=== PATIENT | male | born 1960 | race Caucasian/White ===

== ENCOUNTER 2020-04-02 14:15 | Inpatient (IN) | payer OTHER ==
[~2020-04-02] VITALS: Ht 177.8 cm; Wt 98.9 kg
--- NOTE | 2020-04-02 14:52 | NUR ---
ED Nurse Note: pt presents to ED seeking Regeneron infusion. he was sent by his Dr, Dr. Naidu. pt is c/o SOB and cough, last medicated at 1100 with tylenol. pt is also c/o 5/10 DORANTES px. pt tested (+) 6 days ago
[2020-04-02 14:54] VITALS: BP 124/77
[2020-04-02] MEDS ORDERED: Regeneron EUA 2,400 MG in NS 255 ML IVPB SCH (15:00)
[2020-04-02] MEDS ORDERED: Regeneron EUA MISC ONE (15:00)
--- NOTE | 2020-04-02 15:12 | Emergency Room Report ---
History of Present Illness General Chief Complaint: Flu Like Symptoms Source: Patient Present Illness HPI Disclaimer: Please note that this report is being documented using DRAGON technology. This can lead to erroneous entry secondary to incorrect interpretation by the dictating instrument. HPI: 59-year-old male history of hypertension, hyperlipidemia, asthma presents for monoclonal antibody infusion. Tested positive for COVID-19 [facility] on 02/26 with symptoms beginning 2 days prior. Reports persistent dry cough and mild shortness of breath. Low-grade fevers. Denies chest pain, palpitations, nausea, vomiting or diarrhea. Placed on hydroxychloroquine, azithromycin and prednisone by his PMD, Dr. Naidu. Told to come to the ER for Regeneron infusion. No prior history of allergic reactions. 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 EOMI. Resp: Normal work of breathing, no wheezing, dry cough. Scattered crackles. Initial triage 92% however 96% on room on room air. Skin: Intact. No abrasions, laceration or rash over the exposed skin MSK: Normal tone and bulk. Moving all extremities. No obvious deformity. Neuro: Awake and alert. Mentating appropriately Procedures Critical Care Time Critical Care Time Total critical care time: Approximately 45 minutes Due to a high probability of clinically significant, life threatening deterioration, the patient required the highest level of preparedness to intervene emergently and I personally spent this critical care time directly and personally managing the patient. This critical care time included obtaining a history, examining the patient, pulse oximetry, ordering and reviewing studies, ordering treatments, evaluating response to treatment and updating management plan as needed, frequent reassessment and discussion with other providers as well as arranging for ultimate disposition. This critical to care time was performed to assess and manage the high probability of life-threatening deterioration that could result in multiorgan failure. This critical care time is separate from the separately billable procedures and treating other patients. Medical Decision Making Diagnostic Impression: Primary Impression: COVID-19 Additional Impression: Hypoxia ER Course 59-year-old male history of asthma, hypertension and obesity presents for a general infusion. Tested positive for COVID-19 by nasal swab on 03/28. Patient is on hydroxychloroquine, prednisone and azithromycin by his PMD. He read and understands the risk of Regeneron infusion and has consented to proceed. Patient underwent infusion however during infusion noted worsening shortness of breath. Pulse ox was low approximately 88% which improved with nasal cannula. X-ray was obtained showing bilateral infiltrates. Patient also developed fever. Unclear if this is secondary to Covid versus infusion. No evidence of angioedema or severe anaphylaxis at this time. He is finished a course of azithromycin yesterday and has persistent infiltrates. Likely pneumonia secondary to COVID-19. Will admit for further monitoring of hypoxia. Accepted by Dr. Coley who is the assigned hospitalist for his health plan Labs show normal white count and hemoglobin as well as platelets. CBC unremarkable. White count within normal limits. Chemistry largely unremarkable aside from elevated lactic acid at 2.5. Patient receiving 30 cc/kg IV fluid bolus. Received antibiotics. Troponin negative. Inflammatory markers elevated. Urinalysis shows RBCs but no signs of acute infection. Dimer slightly elevated 0.64 patient was given Lovenox. Patient was tachycardiac after being told he needed to stay in the hospital because of his oxygenation status. Noted significant anxiety was treated with Ativan with some improvement. He feels better now but still remains slightly tachycardic. We will continue to monitor. Sepsis reevaluation: I, Dr. Hang Weir, reevaluated the patient Capillary refill: Less than 2 seconds MAP: 70 Heart rate: 119 Respiratory rate: 25 Initial Lactate: 2.5 Repeat Lactate: Pending Pressors: Not indicated at this time No signs of fluid overload Laboratory Tests Test 04/02/20 19:32 White Blood Count 7.0 K/UL (4.8-10.8) Red Blood Count 5.42 M/UL (4.70-6.10) Hemoglobin 15.6 G/DL (14.2-18.0) Hematocrit 46.6 % (42.0-52.0) Mean Corpuscular Volume 86 FL (80-99) Mean Corpuscular Hemoglobin 28.8 PG (27.0-31.0) Mean Corpuscular Hemoglobin Concent 33.4 G/DL (32.0-36.0) Red Cell Distribution Width 14.0 % (11.6-14.8) Platelet Count 150 K/UL (150-450) Mean Platelet Volume 7.6 FL (6.5-10.1) Neutrophils (%) (Auto) 81.7 % (45.0-75.0) H Lymphocytes (%) (Auto) 14.4 % (20.0-45.0) L Monocytes (%) (Auto) 3.7 % (1.0-10.0) Eosinophils (%) (Auto) 0.0 % (0.0-3.0) Basophils (%) (Auto) 0.2 % (0.0-2.0) Prothrombin Time 11.2 SEC (9.30-11.50) Prothrombin Time INR 1.0 (0.9-1.1) Activated Partial Thromboplast Time 31 SEC (23-33) D-Dimer 0.64 mg/L FEU (0.00-0.49) H Urine Color Pale yellow Urine Appearance Clear Urine pH 6 (4.5-8.0) Urine Specific [place] 1.015 (1.005-1.035) Urine Protein 2+ (NEGATIVE) H Urine Glucose (UA) Negative (NEGATIVE) Urine Ketones Negative (NEGATIVE) Urine Blood 2+ (NEGATIVE) H Urine Nitrite Negative (NEGATIVE) Urine Bilirubin Negative (NEGATIVE) Urine Urobilinogen Normal MG/DL (0.0-1.0) Urine Leukocyte Esterase Negative (NEGATIVE) Urine RBC 10-15 /HPF (0 - 0) H Urine WBC 0-2 /HPF (0 - 0) Urine Squamous Epithelial Cells Occasional /LPF Urine Bacteria Few /HPF (NONE) Sodium Level 136 MMOL/L (136-145) Potassium Level 3.8 MMOL/L (3.5-5.1) Chloride Level 99 MMOL/L (98-107) Carbon Dioxide Level 30 MMOL/L (21-32) Anion Gap 7 mmol/L (5-15) Blood Urea Nitrogen 14 mg/dL (7-18) Creatinine 1.2 MG/DL (0.55-1.30) Estimated Glomerular Filtration Rate > 60 mL/min (>60) Glucose Level 139 MG/DL (74-106) H Lactic Acid Level 2.50 mmol/L (0.4-2.0) H Calcium Level 9.1 MG/DL (8.5-10.1) Ferritin 239 NG/ML (8-388) Total Bilirubin 0.5 MG/DL (0.2-1.0) Aspartate Amino Transferase (AST) 24 U/L (15-37) Alanine Aminotransferase (ALT) 24 U/L (12-78) Alkaline Phosphatase 67 U/L (46-116) Lactate Dehydrogenase 252 U/L (81-234) H Total Creatine Kinase 94 U/L (26-308) Creatine Kinase MB < 0.5 NG/ML (0.0-3.6) Creatine Kinase MB Relative Index 0.5 Troponin I 0.000 ng/mL (0.000-0.056) C-Reactive Protein, Quantitative 10.9 mg/dL (0.00-0.90) H Pro-B-Type Natriuretic Peptide 105 pg/mL (0-125) Total Protein 8.1 G/DL (6.4-8.2) Albumin 3.6 G/DL (3.4-5.0) Globulin 4.5 g/dL Albumin/Globulin Ratio 0.8 (1.0-2.7) L Lipase 161 U/L (73-393) EKG Diagnostic Results Troponin ordered: Yes When was troponin ordered?: Apr 02, 2020 EKG Time: 20:44 Rate: tachycardiac Rhythm: NSR ST Segments: no acute changes Other Impression Sinus tachycardia with normal axis, normal intervals and nonspecific ST segment changes. Rhythm Strip Diag. Results Rhythm Strip Time: 20:44 EP Interpretation: yes Rate: 130s Rhythm: NSR, no PVC's, no ectopy Chest X-Ray Diagnostic Results Chest X-Ray Diagnostic Results : Chest X-Ray Ordered: Yes # of Views/Limited/Complete: 1 View Indication: Shortness of Breath EP Interpretation: Yes Interpretation: no effusion, no pneumothorax, other - Bilateral infiltrates Impression: Other - Bilateral pneumonia Electronically Signed by: Electronically signed by Dr. Hang Weir MD Last Vital Signs Date Time Temp Pulse Resp B/P (MAP) Pulse Ox O2 Delivery O2 Flow Rate FiO2 04/02/20 14:54 108 18 Room Air 04/02/20 14:54 99.1 124/77 92 Disposition: ADMITTED INPATIENT Condition: Serious Referrals: [facility],REFERRING (PCP) Hang Weir MD Apr 02, 2020 15:12
--- NOTE | 2020-04-02 16:20 | NUR ---
ED Nurse Note: infusion started
--- NOTE | 2020-04-02 16:40 | NUR ---
ED Nurse Note: pt tolerating infusion well, no adverse reaction noted
--- NOTE | 2020-04-02 17:20 | NUR ---
ED Nurse Note: infusion finished, no adverse reaction noted
--- NOTE | 2020-04-02 17:40 | NUR ---
ED Nurse Note: pt O2 saturation noted to be in low 90's, placed on 2L NC, saturation improved to 96%. CXR ordered
--- NOTE | 2020-04-02 18:24 | NUR ---
Coco rios in EDM - 04/02/20 at 1825 by QLE ED Nurse Note: pt c/o "severe" DORANTES, MIKE notified
--- NOTE | 2020-04-02 18:25 | NUR ---
ED Nurse Note: pt has fever of 101.2, ERMD notified
[2020-04-02] MEDS ORDERED: Acetaminophen 500mg (ES) tab ORAL ONE (18:30)
--- NOTE | 2020-04-02 18:35 | NUR ---
ED Nurse Note: pt's O2 saturation 92%-93% on 2L NC, increased to 4L, pt's saturation improved to 94%. he is speaking full sentences, tachy, and tearful but consolable.
--- NOTE | 2020-04-02 18:47 | Diagnostic Imaging Report ---
EXAM: XR Chest, 1 View CLINICAL HISTORY: PAIN TECHNIQUE: Frontal view of the chest. COMPARISON: No previous study. FINDINGS: Lungs: Prominent left hilum. Patchy airspace disease at the right lung base. Patchy airspace disease in the left mid lower lung zones. Pleural space: Unremarkable. No pneumothorax. Heart: Cardiomegaly. Mediastinum: Unremarkable. Bones/joints: Osteopenia. IMPRESSION: 1. Patchy airspace disease at the lung bases as well as the left midlung zone worrisome for atypical pneumonia as per 2. Prominent left hilum possibly on the basis of reactive lymphadenopathy appeared 3. CT imaging will provide additional information per 4. Mild cardiomegaly. 5. Osteopenia.
[2020-04-02] MEDS ORDERED: dexAMETHasone 10mg/ml Inj IV ONE (19:15)
[2020-04-02] MEDS ORDERED: Piperacillin/Tazobactam 3.375 GM in NS 110 ML IVPB ONE (19:30)
[2020-04-02 19:45] VITALS: BP 124/77
--- NOTE | 2020-04-02 19:55 | NUR ---
HAND-OFF: Report given to MUKESH Carpenter.
[2020-04-02 19:58] LABS: BASOPHILS % (AUTO) 0.2 % (0.0-2.0); HEMATOCRIT 46.6 % (42.0-52.0); HEMOGLOBIN 15.6 G/DL (14.2-18.0); LYMPHOCYTES % (AUTO) 14.4 % (20.0-45.0); MEAN CORPUSCULAR VOLUME 86 FL (80-99); MONOCYTES % (AUTO) 3.7 % (1.0-10.0); NEUTROPHILS % (AUTO) 81.7 % (45.0-75.0); PLATELET COUNT 150 K/UL (150-450); RED BLOOD COUNT 5.42 M/UL (4.70-6.10)
[2020-04-02] MEDS ORDERED: LORazepam Inj 2mg/ml 1ml IV ONE (20:00)
[2020-04-02 20:31] LABS: ANION GAP 7 mmol/L (5-15); BLOOD UREA NITROGEN 14 mg/dL (7-18); CALCIUM 9.1 MG/DL (8.5-10.1); CARBON DIOXIDE 30 MMOL/L (21-32); CHLORIDE 99 MMOL/L (98-107); CREATININE 1.2 MG/DL (0.55-1.30); POTASSIUM 3.8 MMOL/L (3.5-5.1); SODIUM 136 MMOL/L (136-145)
[2020-04-02] MEDS ORDERED: Enoxaparin 60mg Inj SUBQ ONE (20:45)
[2020-04-02] MEDS ORDERED: Enoxaparin 40mg Inj SUBQ ONE (20:45)
[2020-04-02 20:46] LABS: ALANINE AMINOTRANSFERASE 24 U/L (12-78); ALBUMIN 3.6 G/DL (3.4-5.0); ALBUMIN/GLOBULIN RATIO 0.8 (1.0-2.7); ALKALINE PHOSPHATASE 67 U/L (46-116); ASPARTATE AMINO TRANSFERASE 24 U/L (15-37); BILIRUBIN,TOTAL 0.5 MG/DL (0.2-1.0); CKMB < 0.5 NG/ML (0.0-3.6); CREATINE KINASE 94 U/L (26-308); FERRITIN 239 NG/ML (8-388); LACTATE DEHYDROGENASE 252 U/L (81-234)
--- NOTE | 2020-04-02 20:50 | NUR ---
ED Nurse Note: Received pt awake,A&ox4, and verbal. Pt is on 4L nc and satting 97-98%. he is on cardiac tech; HR 127 O2 97 RR 29 T 98.8. EkG done. All needs are met. We will keep monitoring the pt.
[2020-04-02 20:59] LABS: APPEARANCE,URINE CLEAR; BILIRUBIN, URINE NEGATIVE (NEGATIVE); COLOR,URINE PALE YELLOW; GLUCOSE, URINE (UA) NEGATIVE (NEGATIVE); KETONES,URINE NEGATIVE (NEGATIVE); LEUKOCYTE ESTERASE ,URINE NEGATIVE (NEGATIVE); NITRITE,URINE NEGATIVE (NEGATIVE); PH,URINE 6 (4.5-8.0); PROTEIN,URINE 2+ (NEGATIVE); UROBILINOGEN,URINE NORMAL MG/DL (0.0-1.0)
[2020-04-02] MEDS ORDERED: Zinc Sulfate 220mg ORAL ONE (21:15)
[2020-04-02] MEDS ORDERED: Vitamin D 400 units TAB ORAL ONE (21:15)
[2020-04-02 21:25] VITALS: BP 136/83
[2020-04-02] MEDS ORDERED: Milk of Magnesia 30ml Ud ORAL PRN (21:30)
--- NOTE | 2020-04-02 23:56 | NUR ---
ED Nurse Note: pt is on the bed sleeping, calm , and vitals are stable. we will keep monitoring the pt
[2020-04-02 23:57] VITALS: BP 128/78
[2020-04-03] MEDS ORDERED: LORazepam 0.5mg tab ORAL ONE (00:30)
[2020-04-03] MEDS ORDERED: DiphenhydrAMINE 50mg/ml Inj IVP ONE (02:00)
[2020-04-03 02:01] VITALS: BP 124/71
--- NOTE | 2020-04-03 02:38 | NUR ---
ED Nurse Note: pt is complaning of not sleeping EDMD ordered benadryl. order noted and carried on. we will keep monitoring the pt.
[2020-04-03 05:30] VITALS: BP 134/76
[2020-04-03 08:01] VITALS: BP 111/79
--- NOTE | 2020-04-03 08:13 | NUR ---
ED Nurse Note: report given to Elsa, RN
--- NOTE | 2020-04-03 08:14 | NUR ---
ED Nurse Note: per pt. he takes bp and cjolestrol med but does not remember the names of the med
--- NOTE | 2020-04-03 08:23 | NUR ---
ED Nurse Note: Pt was transferred to telemetry unit under the care of dr. fuller. Report was given to MUKESH Hunter in Tele unit. Pt was transferred on stable condition, all belongings sent with pt, covid 19 protocols for transport was observed.
--- NOTE | 2020-04-03 08:33 | NUR ---
NURSE NOTES: Admitted patient from ED, report given by Audra MAYORGA. Transferred to bed and hooked to O2 at 4LPM. shelter monitor placed. Vital signs taken and recorded. Skin check done, intact. Belongings accounted for. Oriented to room and call light. HOB elevated. Bed locked in low position. Call light within reach, instructed to call for assistance. Bedside commode and urinal provided. HOB elevated. Bed locked in low position. Call light within reach. Will continue plan of care.
[2020-04-03] MEDS: dexAMETHasone 10mg/ml Inj IV SCH (08:48)
[2020-04-03] MEDS: Azithromycin 250mg tab ORAL SCH (08:48)
[2020-04-03] MEDS: cefTRIAXone 1gm/D5W 55ml IVPB SCH ×2 (08:48)
[2020-04-03] MEDS: Ascorbic Acid 500mg tab ORAL SCH (08:48)
[2020-04-03] MEDS ORDERED: Enoxaparin 40mg Inj SUBQ SCH ×2 (09:00)
[2020-04-03 12:00] VITALS: BP 121/77
--- NOTE | 2020-04-03 14:30 | History and Physical Report ---
DATE OF ADMISSION: 04/02/2020 CHIEF COMPLAINT: COVID-19 pneumonia. HISTORY OF PRESENT ILLNESS: The patient is a 59-year-old male. He has history of hypertensive heart disease. Apparently, he did develop symptoms of COVID on . He was tested on the and was positive for COVID-19. The patient was instructed by his PMD to go to the ER for Regeneron treatment, which he did receive but during the treatment he became hypoxic and short of breath. In light of the hypoxemia, he is now admitted for further evaluation and care. PAST MEDICAL HISTORY: As above. PAST SURGICAL HISTORY: None. CURRENT MEDICATIONS: Reconciled and reviewed. ALLERGIES: None. FAMILY HISTORY: None. SOCIAL HISTORY: Negative for tobacco, ethanol, or drugs. REVIEW OF SYSTEMS: Negative except for fevers, cough, and shortness of breath. PHYSICAL EXAMINATION: VITAL SIGNS: Temperature 98, pulse 99, respirations 24, O2 saturation 99% on 4 liters nasal cannula. GENERAL: The patient is well-developed, no apparent distress. HEART: Regular rate and rhythm. LUNGS: Clear. ABDOMEN: Soft, nontender, nondistended. EXTREMITIES: Without clubbing, cyanosis, or edema. LABORATORY AND DIAGNOSTIC DATA: Chest x-ray showed patchy bilateral infiltrates. White count was 7. Sodium 136, potassium 3.8. Lactic acid was 2.5. C-reactive protein was 10. ASSESSMENT: This is a 59-year-old male with a history of hypertension admitted with COVID-19 pneumonia and hypoxemia. PLAN: IV steroids. ID consultation. Consider Remdesivir. Empiric antibiotic therapy to cover for community-acquired pneumonia. DVT and stress ulcer prophylaxis. Hua Coley M.D. DR: Joseph JOB#: [id number] CC:
--- NOTE | 2020-04-03 15:52 | NUR ---
NURSE NOTES: Covid PCR test done and sent to lab. Patient could not tolerate deep swab, label folder aware.
[2020-04-03 16:00] VITALS: BP 128/55
[2020-04-03] MEDS: Albuterol 90mcg Inhaler 8gm INH PRN (17:52)
--- NOTE | 2020-04-03 19:05 | NUR ---
NURSE NOTES: Received report from MUKESH Hunter. Pt is A/O x 4 and verbally responsive. No pain noted at this time. Pt is on 5L via NC with saturation of 94%. Pt has IV site on RAC and LAC both 20G which are flushed and patent. Bed in lowest position and locked with side rails x 2. Pt is continent of bowel and bladder and educated is help is needed. Pt's call light placed within reach. Will continue plan of care.
--- NOTE | 2020-04-03 19:44 | NUR ---
NURSE HAND-OFF REPORT: Important Events on Shift: admission Patient Status: alert Diet: reg Pending Orders: Pending Results/Labs: Pending MD notification: Latest Vital Signs: Temperature 97.9 , Pulse 93 , B/P 128 /55 , Respiratory Rate 18 , O2 SAT 94 , Nasal Cannula, O2 Flow Rate 5.0 . Vital Sign Comment: EKG Rhythm: Sinus Rhythm Rhythm change?: N MD Notified?: - MD Response: Latest Reina Fall Score: 35 Fall Risk: Medium Risk Safety Measures: Call light Within Reach, Bed Alarm Zone 1, Side Rails Side Rails x2, Bed position Low and Locked. Fall Precautions: Yellow Socks Report given to Allyson MAYORGA.
[2020-04-03 20:00] VITALS: BP 122/54
[2020-04-03] MEDS ORDERED: Loading Dose:Remdesivir 200mg/NS 210ml IV SCH ×2 (21:00)
[2020-04-03] MEDS: LORazepam 1mg tab ORAL PRN (21:29)
[2020-04-04] VITALS: BP 134/85
[2020-04-04 04:00] VITALS: BP 122/59
[2020-04-04 06:38] LABS: BASOPHILS % (AUTO) 0.1 % (0.0-2.0); HEMATOCRIT 40.5 % (42.0-52.0); HEMOGLOBIN 13.7 G/DL (14.2-18.0); LYMPHOCYTES % (AUTO) 19.2 % (20.0-45.0); MEAN CORPUSCULAR VOLUME 86 FL (80-99); MONOCYTES % (AUTO) 3.3 % (1.0-10.0); NEUTROPHILS % (AUTO) 77.3 % (45.0-75.0); PLATELET COUNT 133 K/UL (150-450); RED CELL DISTRIBUTION WIDTH 13.1 % (11.6-14.8); WHITE BLOOD COUNT 6.7 K/UL (4.8-10.8)
[2020-04-04 07:14] LABS: ALANINE AMINOTRANSFERASE 23 U/L (12-78); ALBUMIN 2.7 G/DL (3.4-5.0); ALBUMIN/GLOBULIN RATIO 0.7 (1.0-2.7); ALKALINE PHOSPHATASE 48 U/L (46-116); ANION GAP 8 mmol/L (5-15); ASPARTATE AMINO TRANSFERASE 28 U/L (15-37); BILIRUBIN,DIRECT 0.1 MG/DL (0.0-0.3); BILIRUBIN,TOTAL 0.6 MG/DL (0.2-1.0); BLOOD UREA NITROGEN 15 mg/dL (7-18); CALCIUM 8.5 MG/DL (8.5-10.1); CARBON DIOXIDE 27 MMOL/L (21-32); CHLORIDE 105 MMOL/L (98-107); CREATININE 0.8 MG/DL (0.55-1.30); POTASSIUM 3.5 MMOL/L (3.5-5.1); SODIUM 140 MMOL/L (136-145)
--- NOTE | 2020-04-04 07:25 | NUR ---
NURSE NOTES: Received patient in bed. Awake, A/O x4. On 5 L NC. Patient denies pain. IV in the Right AC, site intact. Bed low and locked, side rails up x2, call light within reach with return demonstration.
--- NOTE | 2020-04-04 07:34 | NUR ---
NURSE HAND-OFF REPORT: Important Events on Shift: Started Remdisivir. Started with a productive cough. Patient Status: Stable Diet: Regular Pending Orders: Pending Results/Labs: Pending MD notification: Latest Vital Signs: Temperature 97.7 , Pulse 75 , B/P 122 /59 , Respiratory Rate 18 , O2 SAT 94 , Nasal Cannula, O2 Flow Rate 5.0 . Vital Sign Comment: EKG Rhythm: Sinus Rhythm Rhythm change?: N MD Notified?: - MD Response: Latest Reina Fall Score: 35 Fall Risk: Medium Risk Safety Measures: Call light Within Reach, Bed Alarm Zone 1, Side Rails Side Rails x2, Bed position Low and Locked. Fall Precautions: Yellow Socks Report given to
[2020-04-04 08:00] VITALS: BP 130/63
[2020-04-04] MEDS ORDERED: Enoxaparin 60mg Inj SUBQ SCH (09:00)
[2020-04-04] MEDS: dexAMETHasone 10mg/ml Inj IV SCH (09:13)
[2020-04-04] MEDS: cefTRIAXone 1gm/D5W 55ml IVPB SCH ×2 (09:13)
[2020-04-04] MEDS: Azithromycin 250mg tab ORAL SCH (09:13)
[2020-04-04] MEDS: Ascorbic Acid 500mg tab ORAL SCH (09:13)
[2020-04-04] MEDS ORDERED: LISINOPRIL20 MG ORAL (11:08)
[2020-04-04] MEDS ORDERED: NORVASC5 MG ORAL (11:08)
[2020-04-04] MEDS ORDERED: LIPITOR20 MG ORAL (11:10)
[2020-04-04] MEDS: LORazepam 1mg tab ORAL PRN (11:37)
[2020-04-04 12:00] VITALS: BP 137/93
--- NOTE | 2020-04-04 13:36 | NUR ---
CASE MANAGEMENT:REVIEW 59 YR OLD MALE PRESENTED TO ER CC; SOB AND COUGH SI: COVID PNEUMONIA 101.0 108 18 124/77 92% ON RA GLUCOSE+139 LACTIC ACID+2.5 IS: PLACED ON 2L/NC IV REGENERON TYLENOL PO IV DECADRON IV ZOSYN BLOOD CX CHEST XRAY : TO TELEMETRY DCP: FROM HOME
--- NOTE | 2020-04-04 13:55 | General Progress Note ---
Subjective ROS Limited/Unobtainable: No Constitutional: Reports: malaise, weakness HEENT: Reports: no symptoms Cardiovascular: Reports: no symptoms Respiratory: Reports: shortness of breath Gastrointestinal/Abdominal: Reports: no symptoms Genitourinary: Reports: no symptoms Neurologic/Psychiatric: Reports: no symptoms Endocrine: Reports: no symptoms Hematologic/Lymphatic: Reports: no symptoms Allergies: Coded Allergies: No Known Allergies (Unverified , 04/02/20) All Systems: reviewed and negative except above Subjective no change. stable on 5L NC. Objective Last 24 Hour Vital Signs Date Time Temp Pulse Resp B/P (MAP) Pulse Ox O2 Delivery O2 Flow Rate FiO2 04/04/20 11:37 89 18 130/63 93 04/04/20 09:00 Nasal Cannula 5.0 04/04/20 08:00 89 04/04/20 08:00 97.5 88 18 130/63 (85) 93 04/04/20 04:00 97.7 80 18 122/59 (80) 94 04/04/20 04:00 75 04/04/20 00:00 88 04/04/20 00:00 97.9 85 18 134/85 (101) 95 04/03/20 20:05 Nasal Cannula 5.0 04/03/20 20:00 98.2 98 20 122/54 (76) 93 04/03/20 20:00 98 04/03/20 16:00 93 04/03/20 16:00 97.9 95 18 128/55 (79) 94 Intake and Output 0 04/03/20 04/04/20 19:00 07:00 Intake Total 360 ml 560 ml Output Total 350 ml Balance 360 ml 210 ml Intake Oral 360 ml 560 ml Output Urine Total 350 ml # Voids 1 1 # Bowel Movements 1 Laboratory Tests 04/04/20 05:00: White Blood Count 6.7, Red Blood Count 4.70, Hemoglobin 13.7L, Hematocrit 40.5L, Mean Corpuscular Volume 86, Mean Corpuscular Hemoglobin 29.2, Mean Corpuscular Hemoglobin Concent 33.9, Red Cell Distribution Width 13.1, Platelet Count 133L, Mean Platelet Volume 9.2, Neutrophils (%) (Auto) 77.3H, Lymphocytes (%) (Auto) 19.2L, Monocytes (%) (Auto) 3.3, Eosinophils (%) (Auto) 0.0, Basophils (%) (Auto) 0.1, Sodium Level 140, Potassium Level 3.5, Chloride Level 105, Carbon Dioxide Level 27, Anion Gap 8, Blood Urea Nitrogen 15, Creatinine 0.8, Estimat Glomerular Filtration Rate > 60, Glucose Level 99, Calcium Level 8.5, Total Bilirubin 0.6, Direct Bilirubin 0.1, Aspartate Amino Transf (AST/SGOT) 28, Alanine Aminotransferase (ALT/SGPT) 23, Alkaline Phosphatase 48, Total Protein 6.6, Albumin 2.7L, Globulin 3.9, Albumin/Globulin Ratio 0.7L Height (Feet): 5 Height (Inches): 10.00 Weight (Pounds): 218 General Appearance: WD/WN Neck: supple Cardiovascular: regular rhythm Respiratory/Chest: lungs clear Abdomen: normal bowel sounds, non tender, soft, no organomegaly Edema: no edema noted Leg (L), no edema noted Leg (R) 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
[2020-04-04] MEDS ORDERED: Tubing IV Secondary IV ONE (14:43)
[2020-04-04 16:00] VITALS: BP 132/90
--- NOTE | 2020-04-04 16:32 | Consultation ---
DATE OF CONSULTATION: 04/04/2020 INFECTIOUS DISEASE CONSULTATION REFERRING PHYSICIAN: Hua Coley M.D. REASON FOR CONSULT: COVID-19 pneumonia. HISTORY OF PRESENTING ILLNESS: This is a 59-year-old gentleman with history of hypertension, hypercholesterolemia, who comes in with cough along with shortness of breath. He was found to have COVID-19 pneumonia. He received Regeneron antibodies in the emergency room, but then he became increasingly short of breath and hypoxic and has been admitted. An infectious disease consultation has been obtained for antibiotics. PAST MEDICAL HISTORY: 1. History of hypertension. 2. Hypercholesterolemia. SOCIAL HISTORY: He does not smoke. He drinks alcohol. No history of drug use. FAMILY HISTORY: His mother has colon cancer. REVIEW OF SYSTEMS: RESPIRATORY: No fever or chills. He has cough. He has shortness of breath. No chest pain. CARDIAC: No chest pain. No palpitation. No dizziness. No syncope. GASTROINTESTINAL: No nausea. No vomiting. No abdominal pain or diarrhea. MEDICATIONS: As an inpatient, he is on lisinopril, enoxaparin, atorvastatin, amlodipine, remdesivir, lorazepam, ceftriaxone, ascorbic acid, famotidine, azithromycin, dexamethasone, Mylanta, milk of magnesia, albuterol, Tylenol, Zofran. ALLERGIES: No known drug allergies. PHYSICAL EXAMINATION: VITAL SIGNS: Temperature 97.5, T-max of 99.6, pulse of 85, respiratory rate of 18, blood pressure 132/74, O2 saturation of 92% on 5 L oxygen. Examination deferred due to COVID-19. LABORATORY DATA: White count 6.7, hemoglobin 13.7, hematocrit 40.5, MCV 86, platelet count of 133 with neutrophils of 77%. Sodium 140, potassium 3.5, chloride 105, bicarb 27, BUN 15, creatinine 0.8, glucose 99, calcium 8.5. Total bilirubin 0.5, ferritin 239, AST 28, ALT 23, alkaline phosphatase 48, LDH 252. CK of 94, CK-MB less than 0.5, troponin 0. Total protein 6.6, albumin 2.7, lipase of 161. UA showing 0 to 2 white cells. Blood cultures are negative. Chest x-ray showing patchy airspace disease at the lung bases as well as the left mid lung zone, prominent left hilum, mild cardiomegaly. ASSESSMENT: This is a 59-year-old gentleman with history of hypertension and hypercholesterolemia, who comes in with cough and shortness of breath and was found to have: 1. COVID-19 pneumonia. He is on 5 L oxygen with O2 saturation of 92%. He has received Regeneron antibody. 2. Hypertension. 3. Hypercholesterolemia. PLAN: 1. Continue remdesivir day 2. 2. Continue dexamethasone day 3. 3. Discontinue ceftriaxone and azithromycin. 4. Continue isolation. I would like to thank Dr. Coley for this consultation. Aly Carreno M.D. DR: IVANA JOB#: [id number] CC: Hua Coley M.D.
--- NOTE | 2020-04-04 19:19 | NUR ---
NURSE HAND-OFF REPORT: Important Events on Shift:[new PIV] Patient Status: [FULL CODE/stable] Diet: [regular] Pending Orders: [] Pending Results/Labs:[] Pending MD notification:[] Latest Vital Signs: Temperature 97.8 , Pulse 99 , B/P 132 /90 , Respiratory Rate 18 , O2 SAT 90 , Nasal Cannula, O2 Flow Rate 5.0 . Vital Sign Comment: [] EKG Rhythm: Sinus Rhythm Rhythm change?: N MD Notified?: - MD Response: Latest Reina Fall Score: 35 Fall Risk: Medium Risk Safety Measures: Call light Within Reach, Bed Alarm Zone 1, Side Rails Side Rails x2, Bed position Low and Locked. Fall Precautions: Yellow Socks Report given to [Fawad RN].
--- NOTE | 2020-04-04 19:20 | NUR ---
NURSE NOTES: Received report from MUKESH Marin. Pt is A/O x 4 and verbally responsive. No pain noted at this time. Pt is on 5L via NC with saturation of 94%. Pt has IV site on RFA 22G which is flushed and patent. Bed in lowest position and locked with side rails x 2. Pt is continent of bowel and bladder with bedside commode. Pt's call light placed within reach. Will continue plan of care.
[2020-04-04 20:00] VITALS: BP 115/82
--- NOTE | 2020-04-04 20:35 | NUR ---
NURSE NOTES: Pt stated he felt anxious and may want to take his Ativan because he hasnt gotten sleep all day. Notified him that he just needed to let me know so I could give. Will continue to monitor.
[2020-04-04] MEDS: Maintenance Dose:Remdesivir 100mg/NS 230ml x 4 Doses IV SCH ×2 (20:39)
--- NOTE | 2020-04-04 21:32 | NUR ---
NURSE NOTES: Pt called and notified that he would like his Ativan so he can sleep. VS stable. Given and will continue to monitor and will reassess in 30 minutes.
[2020-04-05] VITALS: BP 121/80
[2020-04-05 04:00] VITALS: BP 128/84
--- NOTE | 2020-04-05 05:19 | NUR ---
NURSE NOTES: Pt's called to have bed side commode changed. Noted to see him still sitting on bed side commode and asked if I could change all linens along with his gown. Pt agreed and waited till everything was changed. Pt stated that felt a lil tenderness at IV site flushed and pt stated pain went away. Will continue to monitor.
--- NOTE | 2020-04-05 07:19 | NUR ---
NURSE HAND-OFF REPORT: Important Events on Shift: Ativan given to his anxiety. Patient Status: Stable Diet: Cardiac Pending Orders: Pending Results/Labs: Pending MD notification: Latest Vital Signs: Temperature 98.1 , Pulse 76 , B/P 128 /84 , Respiratory Rate 18 , O2 SAT 91 , Nasal Cannula, O2 Flow Rate 5.0 . Vital Sign Comment: EKG Rhythm: Sinus Rhythm Rhythm change?: N MD Notified?: - MD Response: Latest Reina Fall Score: 35 Fall Risk: Medium Risk Safety Measures: Call light Within Reach, Bed Alarm Zone 1, Side Rails Side Rails x2, Bed position Low and Locked. Fall Precautions: Yellow Socks Report given to
--- NOTE | 2020-04-05 07:28 | NUR ---
NURSE NOTES: Received patient in bed. Awake, A/O x4. On 5 L NC. Denies pain. IV in the Right FA, site intact. Bed low and locked, side rails up x2, call light within reach - with return demonstration.
[2020-04-05 08:00] VITALS: BP 121/79
[2020-04-05 08:02] LABS: BASOPHILS % (AUTO) 0.5 % (0.0-2.0); HEMATOCRIT 40.3 % (42.0-52.0); HEMOGLOBIN 13.8 G/DL (14.2-18.0); LYMPHOCYTES % (AUTO) 20.1 % (20.0-45.0); MEAN CORPUSCULAR VOLUME 85 FL (80-99); MONOCYTES % (AUTO) 6.8 % (1.0-10.0); NEUTROPHILS % (AUTO) 72.6 % (45.0-75.0); PLATELET COUNT 130 K/UL (150-450); RED BLOOD COUNT 4.72 M/UL (4.70-6.10); RED CELL DISTRIBUTION WIDTH 13.3 % (11.6-14.8); WHITE BLOOD COUNT 5.8 K/UL (4.8-10.8)
[2020-04-05 08:15] LABS: ALANINE AMINOTRANSFERASE 26 U/L (12-78); ALBUMIN 2.5 G/DL (3.4-5.0); ALBUMIN/GLOBULIN RATIO 0.7 (1.0-2.7); ALKALINE PHOSPHATASE 45 U/L (46-116); ANION GAP 8 mmol/L (5-15); ASPARTATE AMINO TRANSFERASE 29 U/L (15-37); BILIRUBIN,DIRECT 0.2 MG/DL (0.0-0.3); BILIRUBIN,TOTAL 0.5 MG/DL (0.2-1.0); BLOOD UREA NITROGEN 19 mg/dL (7-18); CALCIUM 8.8 MG/DL (8.5-10.1); CARBON DIOXIDE 25 MMOL/L (21-32); CHLORIDE 105 MMOL/L (98-107); CREATININE 0.8 MG/DL (0.55-1.30); POTASSIUM 3.9 MMOL/L (3.5-5.1); SODIUM 137 MMOL/L (136-145)
[2020-04-05] MEDS: Lisinopril 20mg tab ORAL SCH (09:01)
[2020-04-05] MEDS: Ascorbic Acid 500mg tab ORAL SCH (09:01)
[2020-04-05] MEDS: dexAMETHasone 10mg/ml Inj IV SCH (09:02)
[2020-04-05] MEDS: Albuterol 90mcg Inhaler 8gm INH PRN ×2 (09:13→13:56)
[2020-04-05] MEDS: Enoxaparin 40mg Inj SUBQ SCH (09:13)
[2020-04-05] MEDS: LORazepam 1mg tab ORAL PRN ×3 (09:17→22:56)
[2020-04-05 12:00] VITALS: BP 134/71
--- NOTE | 2020-04-05 12:25 | NUR ---
CASE MANAGEMENT:REVIEW 04/05/20 SI: COVID PNEUMONIA 97.7 100 21 121/79 92% ON 5L/NC BUN+19 IS: IV REMDESIVIR Q24 IV DECADRON QD LISINOPRIL PO QD LOVENOX SQ QD NORVASC PO QHS : TELEMETRY STATUS DCP: FROM HOME PLAN: RECEIVED REGENERON (CASIRIVIMAB) IN ER CONTINUE REMDESIVIR CONTINUE DECADRON
--- NOTE | 2020-04-05 15:34 | General Progress Note ---
Subjective ROS Limited/Unobtainable: No Constitutional: Reports: malaise, weakness HEENT: Reports: no symptoms Cardiovascular: Reports: no symptoms Respiratory: Reports: cough, shortness of breath Gastrointestinal/Abdominal: Reports: no symptoms Genitourinary: Reports: no symptoms Neurologic/Psychiatric: Reports: no symptoms Endocrine: Reports: no symptoms Hematologic/Lymphatic: Reports: no symptoms Allergies: Coded Allergies: No Known Allergies (Unverified , 04/02/20) All Systems: reviewed and negative except above Subjective no change. stable on 5L NC. Objective Last 24 Hour Vital Signs Date Time Temp Pulse Resp B/P (MAP) Pulse Ox O2 Delivery O2 Flow Rate FiO2 04/05/20 14:26 74 18 128/74 93 04/05/20 13:56 85 18 131/77 95 04/05/20 12:00 97.6 89 19 134/71 (92) 94 04/05/20 09:47 70 18 132/88 92 04/05/20 09:17 78 18 121/79 91 04/05/20 09:01 121/79 04/05/20 09:00 Nasal Cannula 5.0 04/05/20 08:00 97.7 100 21 121/79 (93) 92 04/05/20 08:00 89 04/05/20 04:00 98.1 76 18 128/84 (99) 91 04/05/20 04:00 78 04/05/20 00:00 98.1 80 20 121/80 (94) 90 04/05/20 00:00 78 04/04/20 21:00 Nasal Cannula 5.0 04/04/20 20:40 96 137/89 04/04/20 20:00 95 04/04/20 20:00 97.9 90 20 115/82 (93) 91 04/04/20 16:00 97.8 83 18 132/90 (104) 90 04/04/20 16:00 99 Intake and Output 04/04/20 04/05/20 19:00 07:00 Intake Total 400 ml 820 ml Output Total 500 ml 450 ml Balance -100 ml 370 ml Intake Oral 400 ml 820 ml Output Urine Total 500 ml 450 ml # Voids 2 1 # Bowel Movements 1 Laboratory Tests 04/05/20 04:04: White Blood Count 5.8, Red Blood Count 4.72, Hemoglobin 13.8L, Hematocrit 40.3L, Mean Corpuscular Volume 85, Mean Corpuscular Hemoglobin 29.3, Mean Corpuscular Hemoglobin Concent 34.3, Red Cell Distribution Width 13.3, Platelet Count 130L, Mean Platelet Volume 8.6, Neutrophils (%) (Auto) 72.6, Lymphocytes (%) (Auto) 20.1, Monocytes (%) (Auto) 6.8, Eosinophils (%) (Auto) 0.0, Basophils (%) (Auto) 0.5, Sodium Level 137, Potassium Level 3.9, Chloride Level 105, Carbon Dioxide Level 25, Anion Gap 8, Blood Urea Nitrogen 19H, Creatinine 0.8, Estimat Glomerular Filtration Rate > 60, Glucose Level 101, Calcium Level 8.8, Total Bilirubin 0.5, Direct Bilirubin 0.2, Aspartate Amino Transf (AST/SGOT) 29, Alanine Aminotransferase (ALT/SGPT) 26, Alkaline Phosphatase 45L, Total Protein 6.2L, Albumin 2.5L, Globulin 3.7, Albumin/Globulin Ratio 0.7L Height (Feet): 5 Height (Inches): 10.00 Weight (Pounds): 218 Objective General Appearance: WD/WN Neck: supple Cardiovascular: regular rhythm Respiratory/Chest: lungs clear Abdomen: normal bowel sounds, non tender, soft, no organomegaly Edema: no edema noted Leg (L), no edema noted Leg (R) Neurologic: vice president business development II-XII grossly normal, alert, responsive Assessment/Plan Problem List: (1) Hypoxia ICD Codes: R09.02 - Hypoxemia SNOMED: 657395880 (2) COVID-19 ICD Codes: U07.1 - COVID-19 SNOMED: 364226010 Status: stable Assessment/Plan: stable cont current rx remdesivir steroids o2 repeat cxr dvt/stress ulcer prophylaxis Hua Coley MD Apr 05, 2020 15:34
[2020-04-05 16:00] VITALS: BP 138/75
--- NOTE | 2020-04-05 19:05 | Diagnostic Imaging Report ---
Indication: Cough Technique: One view of the chest Comparison: 04/02/2020 Findings: The heart is enlarged. Bilateral infiltrates have increased. The pleural spaces are clear. Impression: Worsening bilateral infiltrates, over 3 days
--- NOTE | 2020-04-05 19:17 | NUR ---
NURSE HAND-OFF REPORT: Important Events on Shift:[] Patient Status: [FULL CODE/ stable] Diet: [regular] Pending Orders: [titrate O2 ] Pending Results/Labs:[] Pending MD notification:[] Latest Vital Signs: Temperature 97.7 , Pulse 91 , B/P 138 /75 , Respiratory Rate 19 , O2 SAT 95 , Nasal Cannula, O2 Flow Rate 5.0 . Vital Sign Comment: [] EKG Rhythm: Sinus Tachycardia Rhythm change?: N MD Notified?: - MD Response: Latest Reina Fall Score: 35 Fall Risk: Medium Risk Safety Measures: Call light Within Reach, Bed Alarm Zone 1, Side Rails Side Rails x2, Bed position Low and Locked. Fall Precautions: Yellow Socks Report given to [Madeline MAYORGA].
--- NOTE | 2020-04-05 19:30 | NUR ---
NURSE NOTES: Received pt and report from MUKESH Marin. Observed pt resting in bed with both eyes open and watching telelvision. Pt is A/Ox4.trade manager is in placed; pt is NSR. IV site intact, asymptomatic, and patent. Bed is in the lowest position and locked. Call light and bedside table is within reach. No signs/symptoms of acute distress noted. Will continue plan care.
[2020-04-05 20:00] VITALS: BP 116/77
[2020-04-05] MEDS: Maintenance Dose:Remdesivir 100mg/NS 230ml x 4 Doses IV SCH ×2 (21:09)
[2020-04-06] VITALS: BP 112/56
--- NOTE | 2020-04-06 01:46 | NUR ---
NURSE NOTES: Observed pt asleep in bed. Pt is on 3L NC; sating at 92%. No signs/symptoms of acute distress noted. Will continue plan of care.
[2020-04-06 04:00] VITALS: BP 105/63
--- NOTE | 2020-04-06 07:16 | NUR ---
NURSE NOTES: Pt received from Nupur RN. Pt in bed resting, breakfast at bedside. bed low and locked, call light within reach. pt on nasal canula, no respiratory distress noted.
--- NOTE | 2020-04-06 07:25 | NUR ---
NURSE HAND-OFF REPORT: Important Events on Shift: No significant changes during nightshift. Pt is on O2 3LPM NC; sating at 90-92%. Pt gets anxious at times. Patient Status: Stable Diet: Regular Pending Orders: N Pending Results/Labs: AM Labs Pending MD notification: N Latest Vital Signs: Temperature 98.2 , Pulse 80 , B/P 105 /63 , Respiratory Rate 21 , O2 SAT 92 , Nasal Cannula, O2 Flow Rate 3.0 . EKG Rhythm: Sinus Rhythm Rhythm change?: N Latest Reina Fall Score: 35 Fall Risk: Medium Risk Safety Measures: Call light Within Reach, Bed Alarm Zone 1, Side Rails Side Rails x2, Bed position Low and Locked. Fall Precautions: Yellow Socks Patient Fall Education Report given to MUKESH Ngo.
[2020-04-06 07:56] LABS: BASOPHILS % (AUTO) 0.4 % (0.0-2.0); HEMATOCRIT 40.8 % (42.0-52.0); HEMOGLOBIN 13.7 G/DL (14.2-18.0); LYMPHOCYTES % (AUTO) 19.3 % (20.0-45.0); MEAN CORPUSCULAR VOLUME 85 FL (80-99); MONOCYTES % (AUTO) 6.8 % (1.0-10.0); NEUTROPHILS % (AUTO) 73.5 % (45.0-75.0); PLATELET COUNT 154 K/UL (150-450); RED BLOOD COUNT 4.78 M/UL (4.70-6.10); RED CELL DISTRIBUTION WIDTH 13.1 % (11.6-14.8); WHITE BLOOD COUNT 6.8 K/UL (4.8-10.8)
[2020-04-06 08:00] VITALS: BP 114/78
[2020-04-06] MEDS: Lisinopril 20mg tab ORAL SCH (08:08)
[2020-04-06] MEDS: Ascorbic Acid 500mg tab ORAL SCH (08:09)
[2020-04-06] MEDS: dexAMETHasone 10mg/ml Inj IV SCH (08:10)
[2020-04-06] MEDS: Enoxaparin 40mg Inj SUBQ SCH (08:12)
--- NOTE | 2020-04-06 10:26 | General Progress Note ---
Subjective ROS Limited/Unobtainable: No Constitutional: Reports: malaise, weakness HEENT: Reports: no symptoms Cardiovascular: Reports: no symptoms Respiratory: Reports: shortness of breath Gastrointestinal/Abdominal: Reports: no symptoms Genitourinary: Reports: no symptoms Neurologic/Psychiatric: Reports: no symptoms Endocrine: Reports: no symptoms Hematologic/Lymphatic: Reports: no symptoms Allergies: Coded Allergies: No Known Allergies (Unverified , 04/02/20) All Systems: reviewed and negative except above Subjective no events. stable on the vent. on 5-6 L o2. cxr yesterday worse. s/p regeneron. on remdesivir and steroids Objective Last 24 Hour Vital Signs Date Time Temp Pulse Resp B/P (MAP) Pulse Ox O2 Delivery O2 Flow Rate FiO2 04/06/20 09:00 Nasal Cannula 6.0 04/06/20 08:39 98.5 04/06/20 08:08 114/78 04/06/20 08:00 90 04/06/20 08:00 98.5 98 21 114/78 (90) 92 04/06/20 04:00 80 04/06/20 04:00 98.2 88 21 105/63 (77) 92 04/06/20 00:00 98.3 86 20 112/56 (74) 92 04/06/20 00:00 86 04/05/20 23:26 86 20 110/56 95 04/05/20 22:56 96 21 114/73 94 04/05/20 21:16 83 116/77 04/05/20 21:00 Nasal Cannula 3.0 04/05/20 20:00 95 04/05/20 20:00 98.1 95 20 116/77 (90) 95 04/05/20 16:00 101 04/05/20 16:00 97.7 91 19 138/75 (96) 95 04/05/20 14:26 74 18 128/74 93 04/05/20 13:56 85 18 131/77 95 04/05/20 12:00 95 04/05/20 12:00 97.6 89 19 134/71 (92) 94 Intake and Output 04/05/20 04/06/20 19:00 07:00 Intake Total 1000 ml 650 ml Output Total 1200 ml 850 ml Balance -200 ml -200 ml Intake Oral 1000 ml 650 ml Output Urine Total 1200 ml 850 ml # Voids 2 3 # Bowel Movements 1 1 Laboratory Tests 04/06/20 06:35: White Blood Count 6.8, Red Blood Count 4.78, Hemoglobin 13.7L, Hematocrit 40.8L, Mean Corpuscular Volume 85, Mean Corpuscular Hemoglobin 28.7, Mean Corpuscular Hemoglobin Concent 33.6, Red Cell Distribution Width 13.1, Platelet Count 154, Mean Platelet Volume 7.6, Neutrophils (%) (Auto) 73.5, Lymphocytes (%) (Auto) 19.3L, Monocytes (%) (Auto) 6.8, Eosinophils (%) (Auto) 0.0, Basophils (%) (Auto) 0.4 Height (Feet): 5 Height (Inches): 10.00 Weight (Pounds): 218 Objective General Appearance: WD/WN Neck: supple Cardiovascular: regular rhythm Respiratory/Chest: lungs clear Abdomen: normal bowel sounds, non tender, soft, no organomegaly Edema: no edema noted Leg (L), no edema noted Leg (R) Neurologic: section hand II-XII grossly normal, alert, responsive Assessment/Plan Problem List: (1) Hypoxia ICD Codes: R09.02 - Hypoxemia SNOMED: 577991340 (2) COVID-19 ICD Codes: U07.1 - COVID-19 SNOMED: 067080677 Status: stable Assessment/Plan: stable cont current rx remdesivir steroids o2 repeat cxr dvt/stress ulcer prophylaxis Hua Coley MD Apr 06, 2020 10:26
[2020-04-06] MEDS: LORazepam 1mg tab ORAL PRN (10:31)
[2020-04-06 11:11] LABS: ALANINE AMINOTRANSFERASE 35 U/L (12-78); ALBUMIN 2.9 G/DL (3.4-5.0); ALBUMIN/GLOBULIN RATIO 0.7 (1.0-2.7); ALKALINE PHOSPHATASE 58 U/L (46-116); ANION GAP 9 mmol/L (5-15); ASPARTATE AMINO TRANSFERASE 26 U/L (15-37); BILIRUBIN,DIRECT 0.2 MG/DL (0.0-0.3); BILIRUBIN,TOTAL 0.6 MG/DL (0.2-1.0); BLOOD UREA NITROGEN 17 mg/dL (7-18); CALCIUM 8.8 MG/DL (8.5-10.1); CARBON DIOXIDE 25 MMOL/L (21-32); CHLORIDE 103 MMOL/L (98-107); CREATININE 0.9 MG/DL (0.55-1.30); POTASSIUM 3.6 MMOL/L (3.5-5.1); SODIUM 136 MMOL/L (136-145)
[2020-04-06 12:00] VITALS: BP 124/83
--- NOTE | 2020-04-06 13:24 | NUR ---
CASE MANAGEMENT:REVIEW 04/06/20 SI: COVID PNEUMONIA 97.5 94 20 124/83 94% ON 6L/NC H/H-13.7/40.8 GLUCOSE+136 IS: IV REMDESIVIR Q24 (07/04) IV DECADRON QD LISINOPRIL PO QD LOVENOX SQ QD NORVASC PO QHS : TELEMETRY STATUS DCP: FROM HOME PLAN: RECEIVED REGENERON (CASIRIVIMAB) IN ER CONTINUE REMDESIVIR CONTINUE DECADRON WEAN OXYGEN WHEN ABLE
[2020-04-06 16:00] VITALS: BP 125/85
--- NOTE | 2020-04-06 16:35 | Infectious Diseases Prog Note ---
Assessment/Plan Assessment/Plan antibiotics : remdesivir A 1. covid 19 pneumonia on 3 liters O2 with 95 % saturation s/p regeneron antibody 2. hypertension 3. hypercholesterolemia P 1. Continue remdesivir day 4 2. Continue dexamethasone day 5. 3. Continue isolation. Subjective Constitutional: Denies: fever, chills Respiratory: Reports: shortness of breath - decreased, dry cough - decreased Gastrointestinal/Abdominal: Denies: nausea, vomiting, diarrhea Musculoskeletal: Denies: pain Allergies: Coded Allergies: No Known Allergies (Unverified , 04/02/20) Objective Last 24 Hour Vital Signs Date Time Temp Pulse Resp B/P (MAP) Pulse Ox O2 Delivery O2 Flow Rate FiO2 04/06/20 12:00 94 04/06/20 12:00 97.5 98 20 124/83 (97) 94 04/06/20 11:01 93 19 119/81 95 04/06/20 10:31 94 19 109/74 92 04/06/20 09:00 Nasal Cannula 6.0 04/06/20 08:39 98.5 04/06/20 08:08 114/78 04/06/20 08:00 90 04/06/20 08:00 98.5 98 21 114/78 (90) 92 04/06/20 04:00 80 04/06/20 04:00 98.2 88 21 105/63 (77) 92 04/06/20 00:00 98.3 86 20 112/56 (74) 92 04/06/20 00:00 86 04/05/20 23:26 86 20 110/56 95 04/05/20 22:56 96 21 114/73 94 04/05/20 21:16 83 116/77 04/05/20 21:00 Nasal Cannula 3.0 04/05/20 20:00 95 04/05/20 20:00 98.1 95 20 116/77 (90) 95 Height (Feet): 5 Height (Inches): 10.00 Weight (Pounds): 218 Laboratory Tests Test 04/06/20 06:35 04/06/20 10:20 White Blood Count 6.8 K/UL (4.8-10.8) Red Blood Count 4.78 M/UL (4.70-6.10) Hemoglobin 13.7 G/DL (14.2-18.0) L Hematocrit 40.8 % (42.0-52.0) L Mean Corpuscular Volume 85 FL (80-99) Mean Corpuscular Hemoglobin 28.7 PG (27.0-31.0) Mean Corpuscular Hemoglobin Concent 33.6 G/DL (32.0-36.0) Red Cell Distribution Width 13.1 % (11.6-14.8) Platelet Count 154 K/UL (150-450) Mean Platelet Volume 7.6 FL (6.5-10.1) Neutrophils (%) (Auto) 73.5 % (45.0-75.0) Lymphocytes (%) (Auto) 19.3 % (20.0-45.0) L Monocytes (%) (Auto) 6.8 % (1.0-10.0) Eosinophils (%) (Auto) 0.0 % (0.0-3.0) Basophils (%) (Auto) 0.4 % (0.0-2.0) Sodium Level 136 MMOL/L (136-145) Potassium Level 3.6 MMOL/L (3.5-5.1) Chloride Level 103 MMOL/L (98-107) Carbon Dioxide Level 25 MMOL/L (21-32) Anion Gap 9 mmol/L (5-15) Blood Urea Nitrogen 17 mg/dL (7-18) Creatinine 0.9 MG/DL (0.55-1.30) Estimat Glomerular Filtration Rate > 60 mL/min (>60) Glucose Level 136 MG/DL (74-106) H Calcium Level 8.8 MG/DL (8.5-10.1) Total Bilirubin 0.6 MG/DL (0.2-1.0) Direct Bilirubin 0.2 MG/DL (0.0-0.3) Aspartate Amino Transf (AST/SGOT) 26 U/L (15-37) Alanine Aminotransferase (ALT/SGPT) 35 U/L (12-78) Alkaline Phosphatase 58 U/L (46-116) Total Protein 6.8 G/DL (6.4-8.2) Albumin 2.9 G/DL (3.4-5.0) L Globulin 3.9 g/dL Albumin/Globulin Ratio 0.7 (1.0-2.7) L Current Medications Medications (Trade) Dose Ordered Sig/Hossein Route PRN Reason Start Time Stop Time Status Last Admin Dose Admin Acetaminophen (Tylenol) 650 mg Q4H PRN ORAL Mild Pain (Pain Scale 1-3) 04/02/20 21:15 05/02/20 21:14 04/06/20 08:09 Al Hydroxide/Mg Hydroxide (Mylanta) 30 ml Q6H PRN ORAL Abdominal cramps 04/02/20 21:30 05/02/20 21:29 04/05/20 22:55 Albuterol Sulfate (Proventil MDI) 2 puff Q4H PRN INH Shortness of Breath 04/02/20 21:30 07/01/20 21:29 04/05/20 13:56 Amlodipine Besylate (Norvasc) 5 mg QHS ORAL 04/04/20 21:00 05/04/20 20:59 04/05/20 21:16 Ascorbic Acid (Vitamin C) 500 mg DAILY ORAL 04/03/20 09:00 05/03/20 08:59 04/06/20 08:09 Atorvastatin Calcium (Lipitor) 20 mg BEDTIME ORAL 04/04/20 21:00 07/03/20 20:59 04/05/20 21:09 Dexamethasone Sodium Phosphate (Decadron 10mg/ ml Inj) 6 mg DAILY IV 04/03/20 09:00 04/12/20 09:01 04/06/20 08:10 Enoxaparin Sodium (Lovenox) 40 mg DAILY SUBQ 04/05/20 09:00 07/04/20 08:59 04/06/20 08:12 Famotidine (Pepcid) 20 mg DAILY ORAL 04/03/20 09:00 07/02/20 08:59 04/06/20 08:09 Lisinopril (PriniviL) 20 mg DAILY ORAL 04/05/20 09:00 05/05/20 08:59 04/06/20 08:08 Lorazepam (Ativan) 1 mg TIDPRN PRN ORAL For Anxiety 04/03/20 18:15 04/10/20 18:14 04/06/20 10:31 Magnesium Hydroxide (Mom) 30 ml HSPRN PRN ORAL Constipation 04/02/20 21:30 05/02/20 21:29 Ondansetron HCl (Zofran) 4 mg Q6H PRN IVP Nausea & Vomiting 04/02/20 21:15 05/02/20 21:14 Remdesivir 100 mg/ Sodium Chloride 250 ml @ 250 mls/hr Q24H IV 04/04/20 21:00 04/07/20 21:59 04/05/20 21:09 Aly Carreno MD Apr 06, 2020 16:35
--- NOTE | 2020-04-06 19:28 | NUR ---
NURSE HAND-OFF REPORT: Important Events on Shift:[no remarkable events, however o2 put up to 6 liters as pt sat at 88% on 3. Anxiety continues, however reduced by ativan] Patient Status: [full code] Diet: [regular] Pending Orders: [] Pending Results/Labs:[] Pending MD notification:[] Latest Vital Signs: Temperature 97.2 , Pulse 98 , B/P 125 /85 , Respiratory Rate 20 , O2 SAT 94 , Nasal Cannula, O2 Flow Rate 6.0 . Vital Sign Comment: [] EKG Rhythm: Sinus Rhythm Rhythm change?: N MD Notified?: - MD Response: Latest Reina Fall Score: 35 Fall Risk: Medium Risk Safety Measures: Call light Within Reach, Bed Alarm Zone 1, Side Rails Side Rails x2, Bed position Low and Locked. Fall Precautions: Yellow Socks Patient Fall Education Report given to [Darien MAYORGA].
--- NOTE | 2020-04-06 19:33 | Cardiology Report ---
APPROVED REPORT EKG Measurement Heart [id number] MA [id number] [id number] <Conclusion> Sinus tachycardia Nonspecific ST and T wave abnormality Abnormal ECG
--- NOTE | 2020-04-06 19:57 | NUR ---
NURSE NOTES: Patient received from Zane MAYORGA. Patient alert and oriented x4. On oxygen 6L via nasal cannula saturating well. No s/s of distress and no c/o pain. IV site patent and intact on Right FA 22G Saline locked. Bed in lowest position and locked. Call light and bedside table within reach. Addendum: 04/06/20 at 2003 by Konrad Melgar RN Received patient from Jeni MAYORGA
[2020-04-06 20:00] VITALS: BP 121/87
[2020-04-06] MEDS: Maintenance Dose:Remdesivir 100mg/NS 230ml x 4 Doses IV SCH ×2 (21:55)
[2020-04-07] VITALS: BP 113/77
[2020-04-07 04:00] VITALS: BP 113/67
[2020-04-07 05:51] LABS: BASOPHILS % (AUTO) 0.3 % (0.0-2.0); HEMATOCRIT 39.1 % (42.0-52.0); HEMOGLOBIN 13.4 G/DL (14.2-18.0); MEAN CORPUSCULAR VOLUME 84 FL (80-99); MONOCYTES % (AUTO) 6.3 % (1.0-10.0); NEUTROPHILS % (AUTO) 75.4 % (45.0-75.0); PLATELET COUNT 192 K/UL (150-450); RED BLOOD COUNT 4.63 M/UL (4.70-6.10); RED CELL DISTRIBUTION WIDTH 13.2 % (11.6-14.8); WHITE BLOOD COUNT 8.2 K/UL (4.8-10.8)
--- NOTE | 2020-04-07 07:25 | NUR ---
NURSE NOTES: Received report from Konrad Melgar RN. Patient sitting up in bed, awake and alert, watching television and eating breakfast, side rails up x 3, wheels locked, call light within reach, no c/ol pain, on 6 liters nasal cannula, in no apparent distress.
--- NOTE | 2020-04-07 07:29 | NUR ---
NURSE HAND-OFF REPORT: Important Events on Shift:[No significant events Bag 4/5 remdesivir given last night] Patient Status: [FC, A&Ox4] Diet: [Regular] Pending Orders: [] Pending Results/Labs:[] Pending MD notification:[] Latest Vital Signs: Temperature 98.4 , Pulse 90 , B/P 113 /67 , Respiratory Rate 18 , O2 SAT 93 , Nasal Cannula, O2 Flow Rate 6.0 . Vital Sign Comment: [] EKG Rhythm: Sinus Rhythm Rhythm change?: N MD Notified?: - MD Response: Latest Reina Fall Score: 35 Fall Risk: Medium Risk Safety Measures: Call light Within Reach, Bed Alarm Zone 1, Side Rails Side Rails x2, Bed position Low and Locked. Fall Precautions: Yellow Socks Patient Fall Education Report given to [Jd RN].
[2020-04-07 07:59] LABS: ALANINE AMINOTRANSFERASE 23 U/L (12-78); ALBUMIN 2.7 G/DL (3.4-5.0); ASPARTATE AMINO TRANSFERASE 28 U/L (15-37); BILIRUBIN,DIRECT 0.1 MG/DL (0.0-0.3); BILIRUBIN,TOTAL 0.6 MG/DL (0.2-1.0); BLOOD UREA NITROGEN 15 mg/dL (7-18); CALCIUM 8.5 MG/DL (8.5-10.1); CARBON DIOXIDE 27 MMOL/L (21-32); CHLORIDE 105 MMOL/L (98-107); CREATININE 0.8 MG/DL (0.55-1.30); POTASSIUM 3.5 MMOL/L (3.5-5.1); SODIUM 140 MMOL/L (136-145)
[2020-04-07 08:00] VITALS: BP 118/78
[2020-04-07 08:00] LABS: ALKALINE PHOSPHATASE 48 U/L (46-116)
[2020-04-07] MEDS: Lisinopril 20mg tab ORAL SCH (09:25)
[2020-04-07] MEDS: Ascorbic Acid 500mg tab ORAL SCH (09:25)
[2020-04-07] MEDS: dexAMETHasone 10mg/ml Inj IV SCH (09:26)
[2020-04-07] MEDS: Enoxaparin 40mg Inj SUBQ SCH (09:26)
[2020-04-07] MEDS: LORazepam 1mg tab ORAL PRN ×3 (09:29→23:23)
--- NOTE | 2020-04-07 10:11 | General Progress Note ---
Subjective ROS Limited/Unobtainable: No Constitutional: Reports: malaise, weakness HEENT: Reports: no symptoms Cardiovascular: Reports: no symptoms Respiratory: Reports: cough, shortness of breath Gastrointestinal/Abdominal: Reports: no symptoms Genitourinary: Reports: no symptoms Neurologic/Psychiatric: Reports: no symptoms Endocrine: Reports: no symptoms Hematologic/Lymphatic: Reports: no symptoms Allergies: Coded Allergies: No Known Allergies (Unverified , 04/02/20) All Systems: reviewed and negative except above Subjective no events. stable on the vent. on 5-6 L o2. no fevers. feels the same. Objective Last 24 Hour Vital Signs Date Time Temp Pulse Resp B/P (MAP) Pulse Ox O2 Delivery O2 Flow Rate FiO2 04/07/20 09:29 113 18 118/78 92 04/07/20 09:25 118/78 04/07/20 08:00 97.7 113 18 118/78 (91) 92 04/07/20 04:00 73 04/07/20 04:00 98.4 90 18 113/67 (82) 93 04/07/20 00:00 97.9 80 16 113/77 (89) 94 04/07/20 00:00 72 04/06/20 21:56 92 121/87 04/06/20 21:00 Nasal Cannula 6.0 04/06/20 20:00 97.5 92 20 121/87 (98) 93 04/06/20 20:00 97 04/06/20 16:00 102 04/06/20 16:00 97.2 98 20 125/85 (98) 94 04/06/20 12:00 94 04/06/20 12:00 97.5 98 20 124/83 (97) 94 04/06/20 11:01 93 19 119/81 95 04/06/20 10:31 94 19 109/74 92 Intake and Output 04/06/20 04/07/20 19:00 07:00 Intake Total 1000 ml 850 ml Output Total 1200 ml 1500 ml Balance -200 ml -650 ml Intake Oral 1000 ml 850 ml Output Urine Total 1200 ml 1500 ml # Voids 4 Laboratory Tests 04/06/20 10:20: Sodium Level 136, Potassium Level 3.6, Chloride Level 103, Carbon Dioxide Level 25, Anion Gap 9, Blood Urea Nitrogen 17, Creatinine 0.9, Estimat Glomerular Filtration Rate > 60, Glucose Level 136H, Calcium Level 8.8, Total Bilirubin 0.6, Direct Bilirubin 0.2, Aspartate Amino Transf (AST/SGOT) 26, Alanine Aminotransferase (ALT/SGPT) 35, Alkaline Phosphatase 58, Total Protein 6.8, Albu min 2.9L, Globulin 3.9, Albumin/Globulin Ratio 0.7L 04/07/20 03:30: Sodium Level 140, Potassium Level 3.5, Chloride Level 105, Carbon Dioxide Level 27, Blood Urea Nitrogen 15, Creatinine 0.8, Estimat Glomerular Filtration Rate > 60, Glucose Level 99, Calcium Level 8.5, Total Bilirubin 0.6, Direct Bilirubin 0.1, Aspartate Amino Transf (AST/SGOT) 28, Alanine Aminotransferase (ALT/SGPT) 23, Alkaline Phosphatase 48, Total Protein 6.6, Albumin 2.7L, Globulin 3.9 04/07/20 05:25: White Blood Count 8.2, Red Blood Count 4.63L, Hemoglobin 13.4L, Hematocrit 39.1L , Mean Corpuscular Volume 84, Mean Corpuscular Hemoglobin 29.0, Mean Corpuscular Hemoglobin Concent 34.4, Red Cell Distribution Width 13.2, Platelet Count 192, Mean Platelet Volume 8.2, Neutrophils (%) (Auto) 75.4H, Lymphocytes (%) (Auto) 18.0L, Monocytes (%) (Auto) 6.3, Eosinophils (%) (Auto) 0.0, Basophils (%) (Auto) 0.3 Height (Feet): 5 Height (Inches): 10.00 Weight (Pounds): 218 Objective General Appearance: WD/WN Neck: supple Cardiovascular: regular rhythm Respiratory/Chest: lungs clear Abdomen: normal bowel sounds, non tender, soft, no organomegaly Edema: no edema noted Leg (L), no edema noted Leg (R) Neurologic: emergency physician II-XII grossly normal, alert, responsive Assessment/Plan Problem List: (1) Hypoxia ICD Codes: R09.02 - Hypoxemia SNOMED: 797584310 (2) COVID-19 ICD Codes: U07.1 - COVID-19 SNOMED: 537086690 Status: stable Assessment/Plan: stable cont current rx remdesivir steroids o2 repeat cxr dvt/stress ulcer prophylaxis Hua Coley MD Apr 07, 2020 10:11
--- NOTE | 2020-04-07 11:40 | NUR ---
RADIOLOGY DEPT., CHEST X-RAY DONE.-P.DYE
--- NOTE | 2020-04-07 11:57 | Infectious Diseases Prog Note ---
Assessment/Plan Assessment/Plan A 1. covid 19 pneumonia O2 sat 93 % in room air s/p regeneron antibody 2. hypertension 3. hypercholesterolemia 4. Hypoxemia improving P 1. Continue remdesivir day 5 2. Continue dexamethasone day 6. 3. Continue isolation. Subjective ROS Limited/Unobtainable: No Constitutional: Reports: no symptoms Respiratory: Reports: shortness of breath Gastrointestinal/Abdominal: Reports: no symptoms Genitourinary: Reports: no symptoms Allergies: Coded Allergies: No Known Allergies (Unverified , 04/02/20) Objective Last 24 Hour Vital Signs Date Time Temp Pulse Resp B/P (MAP) Pulse Ox O2 Delivery O2 Flow Rate FiO2 04/07/20 09:29 113 18 118/78 92 04/07/20 09:25 118/78 04/07/20 09:00 Nasal Cannula 6.0 04/07/20 08:00 103 04/07/20 08:00 97.7 113 18 118/78 (91) 92 04/07/20 04:00 73 04/07/20 04:00 98.4 90 18 113/67 (82) 93 04/07/20 00:00 97.9 80 16 113/77 (89) 94 04/07/20 00:00 72 04/06/20 21:56 92 121/87 04/06/20 21:00 Nasal Cannula 6.0 04/06/20 20:00 97.5 92 20 121/87 (98) 93 04/06/20 20:00 97 04/06/20 16:00 102 04/06/20 16:00 97.2 98 20 125/85 (98) 94 04/06/20 12:00 94 04/06/20 12:00 97.5 98 20 124/83 (97) 94 Height (Feet): 5 Height (Inches): 10.00 Weight (Pounds): 218 General Appearance: no acute distress HEENT: mucous membranes moist Respiratory/Chest: lungs clear, other - oxygen by nasal cannula Cardiovascular: tachycardia Abdomen: soft, non tender Extremities: no edema Neurologic/Psychiatric: alert, oriented x 3, responsive Laboratory Tests Test 04/07/20 03:30 04/07/20 05:25 Sodium Level 140 MMOL/L (136-145) Potassium Level 3.5 MMOL/L (3.5-5.1) Chloride Level 105 MMOL/L (98-107) Carbon Dioxide Level 27 MMOL/L (21-32) Blood Urea Nitrogen 15 mg/dL (7-18) Creatinine 0.8 MG/DL (0.55-1.30) Estimat Glomerular Filtration Rate > 60 mL/min (>60) Glucose Level 99 MG/DL (74-106) Calcium Level 8.5 MG/DL (8.5-10.1) Total Bilirubin 0.6 MG/DL (0.2-1.0) Direct Bilirubin 0.1 MG/DL (0.0-0.3) Aspartate Amino Transf (AST/SGOT) 28 U/L (15-37) Alanine Aminotransferase (ALT/SGPT) 23 U/L (12-78) Alkaline Phosphatase 48 U/L (46-116) Total Protein 6.6 G/DL (6.4-8.2) Albumin 2.7 G/DL (3.4-5.0) L Globulin 3.9 g/dL White Blood Count 8.2 K/UL (4.8-10.8) Red Blood Count 4.63 M/UL (4.70-6.10) L Hemoglobin 13.4 G/DL (14.2-18.0) L Hematocrit 39.1 % (42.0-52.0) L Mean Corpuscular Volume 84 FL (80-99) Mean Corpuscular Hemoglobin 29.0 PG (27.0-31.0) Mean Corpuscular Hemoglobin Concent 34.4 G/DL (32.0-36.0) Red Cell Distribution Width 13.2 % (11.6-14.8) Platelet Count 192 K/UL (150-450) Mean Platelet Volume 8.2 FL (6.5-10.1) Neutrophils (%) (Auto) 75.4 % (45.0-75.0) H Lymphocytes (%) (Auto) 18.0 % (20.0-45.0) L Monocytes (%) (Auto) 6.3 % (1.0-10.0) Eosinophils (%) (Auto) 0.0 % (0.0-3.0) Basophils (%) (Auto) 0.3 % (0.0-2.0) Current Medications Medications (Trade) Dose Ordered Sig/Hossein Route PRN Reason Start Time Stop Time Status Last Admin Dose Admin Acetaminophen (Tylenol) 650 mg Q4H PRN ORAL Mild Pain (Pain Scale 1-3) 04/02/20 21:15 05/02/20 21:14 04/06/20 08:09 Al Hydroxide/Mg Hydroxide (Mylanta) 30 ml Q6H PRN ORAL Abdominal cramps 04/02/20 21:30 05/02/20 21:29 04/05/20 22:55 Albuterol Sulfate (Proventil MDI) 2 puff Q4H PRN INH Shortness of Breath 04/02/20 21:30 07/01/20 21:29 04/05/20 13:56 Amlodipine Besylate (Norvasc) 5 mg QHS ORAL 04/04/20 21:00 05/04/20 20:59 04/06/20 21:56 Ascorbic Acid (Vitamin C) 500 mg DAILY ORAL 04/03/20 09:00 05/03/20 08:59 04/07/20 09:25 Atorvastatin Calcium (Lipitor) 20 mg BEDTIME ORAL 04/04/20 21:00 07/03/20 20:59 04/06/20 21:56 Dexamethasone Sodium Phosphate (Decadron 10mg/ ml Inj) 6 mg DAILY IV 04/03/20 09:00 04/12/20 09:01 04/07/20 09:26 Enoxaparin Sodium (Lovenox) 40 mg DAILY SUBQ 04/05/20 09:00 07/04/20 08:59 04/07/20 09:26 Famotidine (Pepcid) 20 mg DAILY ORAL 04/03/20 09:00 07/02/20 08:59 04/07/20 09:25 Lisinopril (PriniviL) 20 mg DAILY ORAL 04/05/20 09:00 05/05/20 08:59 04/07/20 09:25 Lorazepam (Ativan) 1 mg TIDPRN PRN ORAL For Anxiety 04/03/20 18:15 04/10/20 18:14 04/07/20 09:29 Magnesium Hydroxide (Mom) 30 ml HSPRN PRN ORAL Constipation 04/02/20 21:30 05/02/20 21:29 Ondansetron HCl (Zofran) 4 mg Q6H PRN IVP Nausea & Vomiting 04/02/20 21:15 2/1/21 21:14 Remdesivir 100 mg/ Sodium Chloride 250 ml @ 250 mls/hr Q24H IV 04/04/20 21:00 04/07/20 21:59 04/06/20 21:55 Marlo Bejarano MD Apr 07, 2020 11:57
[2020-04-07 12:00] VITALS: BP 113/71
--- NOTE | 2020-04-07 14:03 | NUR ---
CASE MANAGEMENT:REVIEW 04/07/20 SI: COVID PNEUMONIA 100.0 113 18 113/71 92% on 6lL/NC H/H-13.4/39.1 IS: IV REMDESIVIR Q24 (08/03) IV DECADRON QD LISINOPRIL PO QD LOVENOX SQ QD NORVASC PO QHS : TELEMETRY STATUS DCP: FROM HOME PLAN: RECEIVED REGENERON (CASIRIVIMAB) IN ER CONTINUE REMDESIVIR CONTINUE DECADRON WEAN OXYGEN ABLE
--- NOTE | 2020-04-07 15:18 | Diagnostic Imaging Report ---
Procedure: XRAY Chest 1v Reason for study: Reason For Exam: COUGH Comparison films: 04/05/2020. FINDINGS: A single one view chest is obtained. Vascularity is normal. There is slight worsening of bilateral infiltrates. Cardiac and mediastinal silhouette are within normal limits. CP angles are sharp. The bony thorax appear unremarkable. IMPRESSION: Slight worsening of bilateral infiltrates.
[2020-04-07 16:00] VITALS: BP 129/94
--- NOTE | 2020-04-07 19:44 | NUR ---
NURSE HAND-OFF REPORT: Important Events on Shift: CXR shows slight worsening of b ilateral infiltrates. SPO2 saturation at 94 percent on 6 liters nasal cannula. Patient is anxious, treated with ativan po. Patient Status: In no apparent distress. Diet: Regular, thin liquid. Pending Orders: N/A Pending Results/Labs:N/A Pending MD notification:N/A Latest Vital Signs: Temperature 96.3 , Pulse 110 , B/P 129 /94 , Respiratory Rate 18 , O2 SAT 94 , Nasal Cannula, O2 Flow Rate 6.0 . Vital Sign Comment: N/A EKG Rhythm: Sinus Tachycardia Rhythm change?: N MD Notified?: - MD Response: Latest Reina Fall Score: 35 Fall Risk: Medium Risk Safety Measures: Call light Within Reach, Bed Alarm Zone 1, Side Rails Side Rails x2, Bed position Low and Locked. Fall Precautions: Yellow Socks Patient Fall Education Report given to Konrad Melgar RN.
--- NOTE | 2020-04-07 19:50 | NUR ---
NURSE NOTES: Patient received from Jd RN. Patient Alert and oriented x4. Saturating well on 6L of oxygen via nasal cannula saturating at 93-95%. Vital signs WNL. IV site patent and intact on Right FA 22G SL. Will give 5th bag of remdesivir later this shift. Incentive spirometry done at bedside. Bed in lowest position and locked. Call light and bedside table within reach,
[2020-04-07 20:00] VITALS: BP 110/75
[2020-04-07] MEDS ORDERED: Promethazine/Codeine 5ml UD ORAL PRN (20:30)
[2020-04-07] MEDS: Maintenance Dose:Remdesivir 100mg/NS 230ml x 4 Doses IV SCH ×2 (20:34)
[2020-04-08] VITALS: BP 106/75
[2020-04-08 04:00] VITALS: BP 113/70
--- NOTE | 2020-04-08 07:28 | NUR ---
NURSE HAND-OFF REPORT: Important Events on Shift:[] Patient Status: [FC, Stable, A&ox4] Diet: [Regular] Pending Orders: [] Pending Results/Labs:[] Pending MD notification:[] Latest Vital Signs: Temperature 97.9 , Pulse 77 , B/P 113 /70 , Respiratory Rate 18 , O2 SAT 94 , Nasal Cannula, O2 Flow Rate 6.0 . Vital Sign Comment: [] EKG Rhythm: Sinus Rhythm Rhythm change?: N MD Notified?: - MD Response: Latest Reina Fall Score: 35 Fall Risk: Medium Risk Safety Measures: Call light Within Reach, Bed Alarm Zone 1, Side Rails Side Rails x2, Bed position Low and Locked. Fall Precautions: Yellow Socks Patient Fall Education Report given to [Masood RN].
[2020-04-08 08:20] VITALS: BP 114/63
--- NOTE | 2020-04-08 08:36 | NUR ---
RD ASSESSMENT & RECOMMENDATIONS SEE CARE ACTIVITY FOR COMPLETE ASSESSMENT DAILY ESTIMATED NEEDS: Needs based on Pulmonary 81.4kg abw 25-30 kcals/kg 3795-8161 total kcals 1-1.5 g protein/kg 81-122 g total protein 25-30 mL/kg 0256-8474 total fluid mLs NUTRITION DIAGNOSIS: Altered nutrition related lab values r/t clinical status as evidenced by elev BG(99-136) on decadron, w/ covid pna++. CURRENT DIET: Regular PO DIET RECOMMENDATIONS: Regular/ CCHO MED w/ elevated BG ADDITIONAL RECOMMENDATIONS: 1) Maintain calibrated daily wts 2) Obtain HgA1C Monitor BG, need for niss 3) Monitor resp status and continued good po intake (now on NC)
[2020-04-08] MEDS: Ascorbic Acid 500mg tab ORAL SCH (08:48)
[2020-04-08] MEDS: Lisinopril 20mg tab ORAL SCH (08:48)
[2020-04-08] MEDS: LORazepam 1mg tab ORAL PRN ×2 (08:49→20:33)
[2020-04-08] MEDS: dexAMETHasone 10mg/ml Inj IV SCH (08:49)
[2020-04-08] MEDS: Enoxaparin 40mg Inj SUBQ SCH (08:58)
--- NOTE | 2020-04-08 11:48 | Infectious Diseases Prog Note ---
Assessment/Plan Assessment/Plan antibiotics : remdesivir A 1. covid 19 pneumonia on 6 liters O2 with 92 % saturation s/p regeneron antibody s/p remdesivir 2. hypertension 3. hypercholesterolemia P 1. Continue dexamethasone day 7. 2. Continue isolation Subjective Constitutional: Denies: fever, chills Respiratory: Reports: shortness of breath, dry cough Gastrointestinal/Abdominal: Denies: nausea, vomiting, diarrhea Musculoskeletal: Reports: pain Allergies: Coded Allergies: No Known Allergies (Unverified , 04/02/20) Objective Last 24 Hour Vital Signs Date Time Temp Pulse Resp B/P (MAP) Pulse Ox O2 Delivery O2 Flow Rate FiO2 04/08/20 08:49 112 22 114/63 95 04/08/20 08:48 114/63 04/08/20 08:20 97.8 112 22 114/63 (80) 95 04/08/20 08:17 Nasal Cannula 6.0 04/08/20 08:00 104 04/08/20 04:00 97.9 94 18 113/70 (84) 94 04/08/20 04:00 77 04/08/20 00:00 76 04/08/20 00:00 98.8 99 22 106/75 (85) 94 04/07/20 23:53 99 22 106/75 94 04/07/20 23:23 99 22 106/75 94 04/07/20 21:00 Nasal Cannula 6.0 04/07/20 20:35 98 110/75 04/07/20 20:00 100 04/07/20 20:00 97.5 98 20 110/75 (87) 95 04/07/20 17:34 110 18 129/94 94 04/07/20 17:04 103 18 118/73 94 04/07/20 16:00 96.3 110 18 129/94 (106) 93 04/07/20 16:00 108 04/07/20 12:00 103 04/07/20 12:00 100.0 103 18 113/71 (85) 92 Height (Feet): 5 Height (Inches): 10.00 Weight (Pounds): 218 Current Medications Medications (Trade) Dose Ordered Sig/Hossein Route PRN Reason Start Time Stop Time Status Last Admin Dose Admin Acetaminophen (Tylenol) 650 mg Q4H PRN ORAL Mild Pain (Pain Scale 1-3) 04/02/20 21:15 05/02/20 21:14 04/06/20 08:09 Al Hydroxide/Mg Hydroxide (Mylanta) 30 ml Q6H PRN ORAL Abdominal cramps 04/02/20 21:30 05/02/20 21:29 04/07/20 20:57 Albuterol Sulfate (Proventil MDI) 2 puff Q4H PRN INH Shortness of Breath 04/02/20 21:30 07/01/20 21:29 04/05/20 13:56 Amlodipine Besylate (Norvasc) 5 mg QHS ORAL 04/04/20 21:00 05/04/20 20:59 04/07/20 20:35 Ascorbic Acid (Vitamin C) 500 mg DAILY ORAL 04/03/20 09:00 05/03/20 08:59 04/08/20 08:48 Atorvastatin Calcium (Lipitor) 20 mg BEDTIME ORAL 04/04/20 21:00 07/03/20 20:59 04/07/20 20:35 Dexamethasone Sodium Phosphate (Decadron 10mg/ ml Inj) 6 mg DAILY IV 04/03/20 09:00 04/12/20 09:01 04/08/20 08:49 Enoxaparin Sodium (Lovenox) 40 mg DAILY SUBQ 04/05/20 09:00 07/04/20 08:59 04/08/20 08:58 Famotidine (Pepcid) 20 mg DAILY ORAL 04/03/20 09:00 07/02/20 08:59 04/08/20 08:49 Lisinopril (PriniviL) 20 mg DAILY ORAL 04/05/20 09:00 05/05/20 08:59 04/08/20 08:48 Lorazepam (Ativan) 1 mg TIDPRN PRN ORAL For Anxiety 04/03/20 18:15 04/10/20 18:14 04/08/20 08:49 Magnesium Hydroxide (Mom) 30 ml HSPRN PRN ORAL Constipation 04/02/20 21:30 05/02/20 21:29 Ondansetron HCl (Zofran) 4 mg Q6H PRN IVP Nausea & Vomiting 04/02/20 21:15 05/02/20 21:14 Promethazine HCl/ Codeine (Phenergan with Codeine) 5 ml Q4H PRN ORAL For Cough 04/07/20 20:30 05/07/20 20:29 Aly Carreno MD Apr 08, 2020 11:48
--- NOTE | 2020-04-08 11:50 | NUR ---
CASE MANAGEMENT:REVIEW 04/08/20 SI: COVID PNEUMONIA 97.8 112 22 114/63 95% ON 6L/NC IS: IV DECADRON QD LISINOPRIL PO QD LOVENOX SQ QD NORVASC PO QHS : TELEMETRY STATUS DCP: FROM HOME PLAN: RECEIVED REGENERON (CASIRIVIMAB) IN ER COMPLETED REMDESIVIR CONTINUE DECADRON WEAN OXYGEN WHEN ABLE
[2020-04-08 12:00] VITALS: BP 122/72
[2020-04-08 16:00] VITALS: BP 119/63
--- NOTE | 2020-04-08 16:08 | NUR ---
P.T NOTE: P.T EVALUATION COMPLETED. PATIENT IS CURRENTLY DEMONSTRATING FULL INDEPENDENCE IN ALL ADL/FUNCTIONAL MOBILITY AND GAIT/LOCOMOTION DESPITE O2 DESATURATION. PATIENT EDUCATED ON ENERGY CONSERVATION , PROPER BREATHING EX'S AND PRONE POSITION TO IMPROVE OXYGENATION. PATIENT VERBALIZE UNDERSTANDING.PATIENT IS AT BASELINE FUNCTION THEREFORE SKILLED P.T IS NOT WARRANTED AT THIS TIME. [facility]. THANK YOU FOR THIS REFERRAL. Addendum: 04/08/20 at 1610 by YESI LITTLE PT Amended: Links added.
--- NOTE | 2020-04-08 18:09 | General Progress Note ---
Subjective ROS Limited/Unobtainable: No Constitutional: Reports: malaise, weakness HEENT: Reports: no symptoms Cardiovascular: Reports: no symptoms Respiratory: Reports: cough, shortness of breath Gastrointestinal/Abdominal: Reports: no symptoms Genitourinary: Reports: no symptoms Neurologic/Psychiatric: Reports: no symptoms Endocrine: Reports: no symptoms Hematologic/Lymphatic: Reports: no symptoms Allergies: Coded Allergies: No Known Allergies (Unverified , 04/02/20) All Systems: reviewed and negative except above Subjective no events. stable on NC. on 5-6 L o2. no fevers. feels the same to slightly better Objective Last 24 Hour Vital Signs Date Time Temp Pulse Resp B/P (MAP) Pulse Ox O2 Delivery O2 Flow Rate FiO2 04/08/20 16:00 102 04/08/20 16:00 97.5 102 24 119/63 (81) 97 04/08/20 12:00 97.6 104 20 122/72 (89) 96 04/08/20 12:00 112 04/08/20 09:30 96 18 112/68 95 04/08/20 08:49 112 22 114/63 95 04/08/20 08:48 114/63 04/08/20 08:20 97.8 112 22 114/63 (80) 95 04/08/20 08:17 Nasal Cannula 6.0 04/08/20 08:00 104 04/08/20 04:00 97.9 94 18 113/70 (84) 94 04/08/20 04:00 77 04/08/20 00:00 76 04/08/20 00:00 98.8 99 22 106/75 (85) 94 04/07/20 23:53 99 22 106/75 94 04/07/20 23:23 99 22 106/75 94 04/07/20 21:00 Nasal Cannula 6.0 04/07/20 20:35 98 110/75 04/07/20 20:00 100 04/07/20 20:00 97.5 98 20 110/75 (87) 95 Intake and Output 04/07/20 04/08/20 19:00 07:00 Intake Total 3200 ml 2500 ml Output Total 2000 ml 1800 ml Balance 1200 ml 700 ml Intake Oral 3200 ml 2500 ml Output Urine Total 2000 ml 1800 ml # Voids 8 Height (Feet): 5 Height (Inches): 10.00 Weight (Pounds): 218 Objective General Appearance: WD/WN Neck: supple Cardiovascular: regular rhythm Respiratory/Chest: lungs clear Abdomen: normal bowel sounds, non tender, soft, no organomegaly Edema: no edema noted Leg (L), no edema noted Leg (R) 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
[2020-04-08 20:00] VITALS: BP 139/90
--- NOTE | 2020-04-08 20:00 | NUR ---
NURSE NOTES: RECEIVED PATIENT LYING IN BED, AWAKE, ALERT/ORIENTED X4, VERBALLY RESPONSIVE, VERY TALKATIVE, DENIES PAIN. NO SIGNS AND SYMPTOMS OF ACUTE CARDIO RESPIRATORY DISTRESS/SHORTNESS OF BREATH, DENIES CHEST PAIN, NO PERIPHERAL EDEMA NOTED. IV INTACT TO RIGHT FOREARM/GAUGE 22, NO REDNESS/SWELLING NOTED. DENIES GI DISCOMFORT, NO N/V/D. SIDE RAILS UP X2 FOR MOBILITY, BED IN LOWEST POSITION FOR SAFETY, ENCOURAGED PATIENT TO UTILIZE CALL LIGHT FOR ASSISTANCE, VERBALIZED UNDERSTANDING. CONTINUE WITH CURRENT PLAN OF CARE. NAD.
[2020-04-09] VITALS: BP 105/67
[2020-04-09 04:00] VITALS: BP 115/82
--- NOTE | 2020-04-09 07:45 | NUR ---
NURSE NOTES: RECEIVED PATIENT LYING IN BED, AWAKE, ALERT/ORIENTED X4, HOB ELEVATED FOR ADEQUATE VENTILATION. IS @ BEDSIDE AND BEING UTILIZE BY PATIENT AND INSTRUCTIONS GIVEN. O2 ON 5L VIA AND WILL CONT TO MONITOR. ABLE TO VERBALIZE NEEDS. VERY TALKATIVE, DENIES PAIN. NO SIGNS AND SYMPTOMS OF ACUTE CARDIO-RESPIRATORY DISTRESS/SHORTNESS OF BREATH, DENIES CHEST PAIN, NO PERIPHERAL EDEMA NOTED. PIV PATENT AND INTACT TO RIGHT FOREARM/GAUGE 22, NO REDNESS/SWELLING NOTED. DENIES GI DISCOMFORT, NO N/V/D. SIDE RAILS UP X2 FOR MOBILITY. URINAL @ BEDSIDE. BED IN LOWEST POSITION FOR SAFETY, ENCOURAGED PATIENT TO UTILIZE CALL LIGHT FOR ASSISTANCE, VERBALIZED UNDERSTANDING. CONTINUE WITH CURRENT PLAN OF CARE.
[2020-04-09 08:00] VITALS: BP 107/68
--- NOTE | 2020-04-09 08:24 | NUR ---
NURSE HAND-OFF REPORT: Important Events on Shift:[UNEVENTFUL NIGHT, RESTED WELL] Patient Status: [STABLE, AFEBRILE] Diet: [REGULAR] Pending Orders: [AM LABS] Pending Results/Labs:[N/A] Pending MD notification:[] Latest Vital Signs: Temperature 97.9 , Pulse 89 , B/P 115 /82 , Respiratory Rate 20 , O2 SAT 97 , Nasal Cannula, O2 Flow Rate 6.0 . Vital Sign Comment: [STABLE, AFEBRILE] EKG Rhythm: Sinus Rhythm Rhythm change?: N MD Notified?: - MD Response: Latest Reina Fall Score: 20 Fall Risk: Low Risk Safety Measures: Call light Within Reach, Bed Alarm Zone 1, Side Rails Side Rails x2, Bed position Low and Locked. Fall Precautions: Yellow Socks Patient Fall Education Report given to [LEELA CASILLAS].
--- NOTE | 2020-04-09 08:30 | NUR ---
NURSE NOTES: titrated O2 to 4.5 l and saturation 95-93%. No acute resp distress noted. will cont to monitor.
[2020-04-09] MEDS: Lisinopril 20mg tab ORAL SCH (08:50)
[2020-04-09] MEDS: Ascorbic Acid 500mg tab ORAL SCH (08:51)
[2020-04-09] MEDS: Enoxaparin 40mg Inj SUBQ SCH (08:54)
[2020-04-09] MEDS: dexAMETHasone 10mg/ml Inj IV SCH (09:00)
[2020-04-09] MEDS: LORazepam 1mg tab ORAL PRN ×2 (09:22→22:28)
--- NOTE | 2020-04-09 11:40 | General Progress Note ---
Subjective ROS Limited/Unobtainable: No Constitutional: Reports: no symptoms HEENT: Reports: no symptoms Cardiovascular: Reports: no symptoms Respiratory: Reports: cough Gastrointestinal/Abdominal: Reports: no symptoms Genitourinary: Reports: no symptoms Neurologic/Psychiatric: Reports: no symptoms Endocrine: Reports: no symptoms Hematologic/Lymphatic: Reports: no symptoms Allergies: Coded Allergies: No Known Allergies (Unverified , 04/02/20) All Systems: reviewed and negative except above Subjective slightly decreased o2 requirements. c/o left calf pain. c/o cough. not asking for cough medicine. Objective Last 24 Hour Vital Signs Date Time Temp Pulse Resp B/P (MAP) Pulse Ox O2 Delivery O2 Flow Rate FiO2 04/09/20 09:52 80 21 118/74 96 04/09/20 09:22 102 21 107/68 95 04/09/20 08:50 107/68 04/09/20 08:00 96.0 102 21 107/68 (81) 95 04/09/20 04:00 97.9 89 20 115/82 (93) 97 04/09/20 00:00 97.5 82 20 105/67 (80) 96 04/09/20 00:00 81 04/08/20 21:03 84 18 132/75 96 04/08/20 21:00 Nasal Cannula 6.0 04/08/20 21:00 113 04/08/20 20:33 89 18 136/83 95 04/08/20 20:32 89 136/83 04/08/20 20:00 97.9 98 20 139/90 (106) 97 04/08/20 16:00 102 04/08/20 16:00 97.5 102 24 119/63 (81) 97 04/08/20 12:00 97.6 104 20 122/72 (89) 96 04/08/20 12:00 112 Intake and Output 04/08/20 04/09/20 19:00 07:00 Intake Total 600 ml 2000 ml Output Total 1900 ml Balance 600 ml 100 ml Intake Oral 600 ml 2000 ml Output Urine Total 1900 ml # Voids 8 # Bowel Movements 1 1 Height (Feet): 5 Height (Inches): 10.00 Weight (Pounds): 218 Objective General Appearance: WD/WN Neck: supple Cardiovascular: regular rhythm Respiratory/Chest: lungs clear Abdomen: normal bowel sounds, non tender, soft, no organomegaly Edema: no edema noted Leg (L), no edema noted Leg (R). no calf swelling or erythema. 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
[2020-04-09 11:52] VITALS: BP 118/78
--- NOTE | 2020-04-09 12:22 | Diagnostic Imaging Report ---
US VENOUS BILATERAL LOWER EXTREMITIES INDICATION: Lower extremity pain. DVT TECHNIQUE: Real-time sonographic imaging of the bilateral common femoral, superficial femoral and popliteal veins is performed utilizing intermittent compression. The study is supplemented with color flow imaging and duplex Doppler during spontaneous flow, Valsalva and calf augmentation. COMPARISON: FINDINGS: Normal compressibility is demonstrated from the common femoral vein to the popliteal vein bilaterally. There is normal response to Valsalva and augmentation. Normal spontaneous phasic flow is noted. IMPRESSION: No evidence of deep venous thrombosis.
--- NOTE | 2020-04-09 12:54 | Infectious Diseases Prog Note ---
Assessment/Plan Assessment/Plan A 1. COVID19 pneumonia s/p regeneron antibody 2. hypertension 3. hypercholesterolemia 4. Hypoxemia improving P 1 Finished remdesivir course 2. Continue dexamethasone day 8. 3. Continue isolation. Subjective ROS Limited/Unobtainable: Yes Constitutional: Reports: no symptoms Respiratory: Reports: shortness of breath, dry cough Gastrointestinal/Abdominal: Reports: no symptoms Genitourinary: Reports: no symptoms Allergies: Coded Allergies: No Known Allergies (Unverified , 04/02/20) Objective Last 24 Hour Vital Signs Date Time Temp Pulse Resp B/P (MAP) Pulse Ox O2 Delivery O2 Flow Rate FiO2 04/09/20 11:52 96.4 102 21 118/78 (91) 96 04/09/20 09:52 80 21 118/74 96 04/09/20 09:22 102 21 107/68 95 04/09/20 08:50 107/68 04/09/20 08:00 96.0 102 21 107/68 (81) 95 04/09/20 04:00 97.9 89 20 115/82 (93) 97 04/09/20 00:00 97.5 82 20 105/67 (80) 96 04/09/20 00:00 81 04/08/20 21:03 84 18 132/75 96 04/08/20 21:00 Nasal Cannula 6.0 04/08/20 21:00 113 04/08/20 20:33 89 18 136/83 95 04/08/20 20:32 89 136/83 04/08/20 20:00 97.9 98 20 139/90 (106) 97 04/08/20 16:00 102 04/08/20 16:00 97.5 102 24 119/63 (81) 97 Height (Feet): 5 Height (Inches): 10.00 Weight (Pounds): 218 HEENT: mucous membranes moist Respiratory/Chest: lungs clear, other - oxygen by nasal cannula Cardiovascular: tachycardia Abdomen: soft, non tender Extremities: no edema Current Medications Medications (Trade) Dose Ordered Sig/Hossein Route PRN Reason Start Time Stop Time Status Last Admin Dose Admin Acetaminophen (Tylenol) 650 mg Q4H PRN ORAL Mild Pain (Pain Scale 1-3) 04/02/20 21:15 05/02/20 21:14 04/06/20 08:09 Al Hydroxide/Mg Hydroxide (Mylanta) 30 ml Q6H PRN ORAL Abdominal cramps 04/02/20 21:30 05/02/20 21:29 04/08/20 21:49 Albuterol Sulfate (Proventil MDI) 2 puff Q4H PRN INH Shortness of Breath 04/02/20 21:30 07/01/20 21:29 04/05/20 13:56 Amlodipine Besylate (Norvasc) 5 mg QHS ORAL 04/04/20 21:00 05/04/20 20:59 04/08/20 20:32 Ascorbic Acid (Vitamin C) 500 mg DAILY ORAL 04/03/20 09:00 05/03/20 08:59 04/09/20 08:51 Atorvastatin Calcium (Lipitor) 20 mg BEDTIME ORAL 04/04/20 21:00 07/03/20 20:59 04/08/20 20:33 Dexamethasone Sodium Phosphate (Decadron 10mg/ ml Inj) 6 mg DAILY IV 04/03/20 09:00 04/12/20 09:01 04/08/20 08:49 Enoxaparin Sodium (Lovenox) 40 mg DAILY SUBQ 04/05/20 09:00 07/04/20 08:59 04/09/20 08:54 Famotidine (Pepcid) 20 mg DAILY ORAL 04/03/20 09:00 07/02/20 08:59 04/09/20 08:50 Lisinopril (PriniviL) 20 mg DAILY ORAL 04/05/20 09:00 05/05/20 08:59 04/08/20 08:48 Lorazepam (Ativan) 1 mg TIDPRN PRN ORAL For Anxiety 04/03/20 18:15 04/10/20 18:14 04/09/20 09:22 Magnesium Hydroxide (Mom) 30 ml HSPRN PRN ORAL Constipation 04/02/20 21:30 05/02/20 21:29 Ondansetron HCl (Zofran) 4 mg Q6H PRN IVP Nausea & Vomiting 04/02/20 21:15 05/02/20 21:14 Promethazine HCl/ Codeine (Phenergan with Codeine) 5 ml Q4H PRN ORAL For Cough 04/07/20 20:30 05/07/20 20:29 Marlo Bejarano MD Apr 09, 2020 12:54
[2020-04-09 13:15] LABS: BASOPHILS % (AUTO) 0.7 % (0.0-2.0); EOSINOPHILS % (AUTO) 1.1 % (0.0-3.0); HEMATOCRIT 42.9 % (42.0-52.0); HEMOGLOBIN 14.1 G/DL (14.2-18.0); LYMPHOCYTES % (AUTO) 11.6 % (20.0-45.0); MEAN CORPUSCULAR VOLUME 88 FL (80-99); MONOCYTES % (AUTO) 7.6 % (1.0-10.0); NEUTROPHILS % (AUTO) 78.9 % (45.0-75.0); PLATELET COUNT 226 K/UL (150-450); RED BLOOD COUNT 4.87 M/UL (4.70-6.10); RED CELL DISTRIBUTION WIDTH 12.4 % (11.6-14.8); WHITE BLOOD COUNT 13.7 K/UL (4.8-10.8)
[2020-04-09 13:29] LABS: ALANINE AMINOTRANSFERASE 44 U/L (12-78); ALBUMIN 2.5 G/DL (3.4-5.0); ALBUMIN/GLOBULIN RATIO 0.7 (1.0-2.7); ALKALINE PHOSPHATASE 58 U/L (46-116); ANION GAP 8 mmol/L (5-15); ASPARTATE AMINO TRANSFERASE 22 U/L (15-37); BILIRUBIN,TOTAL 0.5 MG/DL (0.2-1.0); BLOOD UREA NITROGEN 17 mg/dL (7-18); CALCIUM 8.3 MG/DL (8.5-10.1); CARBON DIOXIDE 25 MMOL/L (21-32); CHLORIDE 104 MMOL/L (98-107); CREATININE 0.7 MG/DL (0.55-1.30); POTASSIUM 3.8 MMOL/L (3.5-5.1); SODIUM 137 MMOL/L (136-145)
--- NOTE | 2020-04-09 13:52 | NUR ---
NURSE NOTES: titrated to 4L via NC. O2 sat 96%. no acute resp distress noted. will cont to monitor.
[2020-04-09 16:00] VITALS: BP 119/98
--- NOTE | 2020-04-09 16:30 | NUR ---
NURSE NOTES: TITRATED O2 TO 3.5 L AND SATING 96%. WILL CONT TO MONITOR.
--- NOTE | 2020-04-09 19:27 | NUR ---
NURSE HAND-OFF REPORT: Important Events on Shift:[TITRATE O2 PER MD; VENOUS DUPLEX DONE AND NEGATIVE] Patient Status: [STABLE] Diet: [REG] Pending Orders: [] Pending Results/Labs:[] Pending MD notification:[] Latest Vital Signs: Temperature 97.7 , Pulse 96 , B/P 119 /98 , Respiratory Rate 19 , O2 SAT 96 , Nasal Cannula, O2 Flow Rate 6.0 . Vital Sign Comment: [] EKG Rhythm: Sinus Rhythm Rhythm change?: N MD Notified?: - MD Response: Latest Reina Fall Score: 20 Fall Risk: Low Risk Safety Measures: Call light Within Reach, Bed Alarm Zone 1, Side Rails Side Rails x2, Bed position Low and Locked. Fall Precautions: Yellow Socks Patient Fall Education Report given to [KERI].
--- NOTE | 2020-04-09 19:30 | NUR ---
NURSE NOTES: Important Events on Shift: Received report from Bebe Redding LVN. Pt in stable condition throughout shift. Pt to titrate NC goal of >92% o2 @ 2 L. Pt c/o abdominal cramps and heartburn. Requests Ativan for 6/10 anxiety. See EMAR. Will continue plan of care and close monitoring. Patient Status: Full code Diet: regular Pending Orders: none Pending Results/Labs: none Pending MD notification: none Latest Vital Signs: Temperature 97.4 , Pulse 76 , B/P 105 /73 , Respiratory Rate 18 , O2 SAT 94 , Nasal Cannula, O2 Flow Rate 6.0 . Vital Sign Comment: stable throughout shift. EKG Rhythm: Sinus Rhythm Rhythm change?: N MD Notified?: - MD Response: Latest Reina Fall Score: 20 Fall Risk: Low Risk Safety Measures: Call light Within Reach, Bed Alarm Zone 1, Side Rails Side Rails x2, Bed position Low and Locked. Fall Precautions: YES Yellow Socks YES Patient Fall Education YES
[2020-04-09 20:00] VITALS: BP 98/71
[2020-04-10] VITALS: BP 105/73
[2020-04-10 04:00] VITALS: BP 97/61
--- NOTE | 2020-04-10 07:54 | NUR ---
NURSE HAND-OFF REPORT: Important Events on Shift: Pt requests ativan for anxiety, see EMAR. Patient Status: full code Diet: regular Pending Orders: none Pending Results/Labs: none Pending MD notification: none Latest Vital Signs: Temperature 97.4 , Pulse 67 , B/P 105 /73 , Respiratory Rate 18 , O2 SAT 94 , Nasal Cannula, O2 Flow Rate 6.0 . Vital Sign Comment: EKG Rhythm: Sinus Rhythm Rhythm change?: N MD Notified?: - MD Response: Latest Reina Fall Score: 20 Fall Risk: Low Risk Safety Measures: Call light Within Reach, Bed Alarm Zone 1, Side Rails Side Rails x2, Bed position Low and Locked. Fall Precautions: YES Yellow Socks Patient Fall Education Report given to WILBER Palma RN
[2020-04-10 08:00] VITALS: BP 99/60
--- NOTE | 2020-04-10 08:13 | NUR ---
NURSE NOTES: Received report from Jackeline Ortiz RN. Patient sitting up in bed, awake and alert, on 3 liters nasal cannula, bed in lowest position, wheels locked, call light within reach, side rails up x 2, no c/o pain, in no apparent distress.
--- NOTE | 2020-04-10 08:51 | General Progress Note ---
Subjective ROS Limited/Unobtainable: No Constitutional: Reports: weakness HEENT: Reports: no symptoms Cardiovascular: Reports: no symptoms Respiratory: Reports: cough Gastrointestinal/Abdominal: Reports: constipated Genitourinary: Reports: no symptoms Neurologic/Psychiatric: Reports: no symptoms Endocrine: Reports: no symptoms Hematologic/Lymphatic: Reports: no symptoms Allergies: Coded Allergies: No Known Allergies (Unverified , 04/02/20) All Systems: reviewed and negative except above Subjective bert foot pain. venous duplex neg. on 3L NC. c/o anxiety and heartburn Objective Last 24 Hour Vital Signs Date Time Temp Pulse Resp B/P (MAP) Pulse Ox O2 Delivery O2 Flow Rate FiO2 04/10/20 04:00 97.1 77 17 97/61 (73) 97 04/10/20 04:00 67 04/10/20 00:00 76 04/10/20 00:00 97.4 83 18 105/73 (84) 94 04/09/20 22:58 89 22 105/73 94 04/09/20 22:28 84 20 97/50 96 04/09/20 21:00 84 97/50 04/09/20 21:00 Nasal Cannula 6.0 04/09/20 20:00 82 04/09/20 20:00 97.7 89 20 98/71 (80) 96 04/09/20 16:00 97.7 96 19 119/98 (105) 96 04/09/20 16:00 114 04/09/20 12:00 93 04/09/20 11:52 96.4 102 21 118/78 (91) 96 04/09/20 09:52 80 21 118/74 96 04/09/20 09:22 102 21 107/68 95 04/09/20 09:00 Nasal Cannula 6.0 04/09/20 08:50 107/68 Intake and Output 04/09/20 04/10/20 19:00 07:00 Intake Total 2360 ml 480 ml Output Total 2000 ml 1200 ml Balance 360 ml -720 ml Intake Oral 2360 ml 480 ml Output Urine Total 2000 ml 1200 ml # Voids 3 # Bowel Movements 1 Laboratory Tests 04/09/20 12:50: White Blood Count 13.7H, Red Blood Count 4.87, Hemoglobin 14.1L, Hematocrit 42.9, Mean Corpuscular Volume 88, Mean Corpuscular Hemoglobin 28.9, Mean Corpuscular Hemoglobin Concent 32.8, Red Cell Distribution Width 12.4, Platelet Count 226, Mean Platelet Volume 7.5, Neutrophils (%) (Auto) 78.9H, Lymphocytes (%) (Auto) 11.6L, Monocytes (%) (Auto) 7.6, Eosinophils (%) (Auto) 1.1, Basophils (%) (Auto) 0.7, Sodium Level 137, Potassium Level 3.8, Chloride Level 104, Carbon Dioxide Level 25, Anion Gap 8, Blood Urea Nitrogen 17, Creatinine 0.7, Estimat Glomerular Filtration Rate > 60, Glucose Level 84, Calcium Level 8.3L, Magnesium Level 2.3, Total Bilirubin 0.5, Aspartate Amino Transf (AST/SGOT) 22, Alanine Aminotransferase (ALT/SGPT) 44, Alkaline Phosphatase 58, Total Protein 6.1L, Albumin 2.5L, Globulin 3.6, Albumin/Globulin Ratio 0.7L Height (Feet): 5 Height (Inches): 10.00 Weight (Pounds): 218 Objective General Appearance: WD/WN Neck: supple Cardiovascular: regular rhythm Respiratory/Chest: lungs clear Abdomen: normal bowel sounds, non tender, soft, no organomegaly Edema: no edema noted Leg (L), no edema noted Leg (R). no calf swelling or erythema. neg homans sign bert Neurologic: deck worker II-XII grossly normal, alert, responsive Assessment/Plan Problem List: (1) Hypoxia ICD Codes: R09.02 - Hypoxemia SNOMED: 917078998 (2) COVID-19 ICD Codes: U07.1 - COVID-19 SNOMED: 869170421 Status: stable Assessment/Plan: stable cont current rx remdesivir completed steroids x 10 days o2 bowel regime anxiolytics follow up labs encourage incentive spirometry dvt prophylaxis with lovenox bid Hua Coley MD Apr 10, 2020 08:51
[2020-04-10] MEDS: dexAMETHasone 10mg/ml Inj IV SCH (08:53)
[2020-04-10] MEDS: Enoxaparin 40mg Inj SUBQ SCH (08:56)
[2020-04-10] MEDS: Lisinopril 20mg tab ORAL SCH (08:57)
[2020-04-10] MEDS: Ascorbic Acid 500mg tab ORAL SCH (08:58)
[2020-04-10] MEDS: LORazepam 1mg tab ORAL PRN ×2 (08:58→22:08)
[2020-04-10 16:00] VITALS: BP 99/60
--- NOTE | 2020-04-10 19:45 | NUR ---
NURSE NOTES: Received report from MUKESH Miles. Pt is awake, alert and oriented x4, appears hypervigilant, is very dependent and asks questions repeatedly for reassurance. Pt is sitting up at the side of the bed, bed is locked in lowest position, ambulatory steady gait. VSS but pt is very very anxious, fearful that he has Covid and asks for reassurance about each thing. Provided therapeutic communication to alleviate some of his anxiety. Pt to titrate NC goal of >92% o2 On 2 L currently NC satting at 96%, but pt is very anxious and does not want the oxygen decreased despite education- the need to be off oxygen to go home. Pt c/o heartburn. Will continue plan of care and close monitoring.
[2020-04-10 20:00] VITALS: BP 130/85
[2020-04-11] VITALS: BP 110/70
[2020-04-11 08:00] VITALS: BP 115/69
--- NOTE | 2020-04-11 08:03 | NUR ---
NURSE NOTES: Report received from Andra MAYORGA. Patient seen on rounds, AxOx4, not in distress on 3lpm with no SOB. Nurse reports patient has episodes of anxiety but appears calm, pleasant and cooperative on assessment. PIV on right wrist patent and intact. Pt uses urinal at bedside. Bed low and locked, siderails up x2, call light placed within reach and instructed to call nurse for assistance. Will continue to monitor.
[2020-04-11] MEDS: Ascorbic Acid 500mg tab ORAL SCH (08:20)
[2020-04-11] MEDS: dexAMETHasone 10mg/ml Inj IV SCH (08:20)
[2020-04-11] MEDS: Lisinopril 20mg tab ORAL SCH (08:21)
[2020-04-11] MEDS: Enoxaparin 40mg Inj SUBQ SCH (08:22)
--- NOTE | 2020-04-11 11:37 | Infectious Diseases Prog Note ---
Assessment/Plan Assessment/Plan antibiotics : none A 1. covid 19 pneumonia improving on 2 liters O2 with 97 % saturation s/p regeneron antibody s/p remdesivir 2. hypertension 3. hypercholesterolemia P 1. complete dexamethasone day 10. 2. Continue isolation Subjective Respiratory: Reports: shortness of breath - less, dry cough - less Gastrointestinal/Abdominal: Denies: nausea, vomiting, diarrhea Musculoskeletal: Denies: pain Allergies: Coded Allergies: No Known Allergies (Unverified , 04/02/20) Objective Last 24 Hour Vital Signs Date Time Temp Pulse Resp B/P (MAP) Pulse Ox O2 Delivery O2 Flow Rate FiO2 04/11/20 09:00 Nasal Cannula 2.0 04/11/20 08:21 110/70 04/11/20 08:00 96.5 81 20 115/69 (84) 97 04/11/20 08:00 83 04/11/20 04:00 76 04/11/20 04:00 89 20 04/11/20 00:00 96.8 89 22 110/70 (83) 96 04/11/20 00:00 79 04/10/20 22:38 86 18 130/85 97 04/10/20 22:08 104 18 110/62 95 04/10/20 21:00 Nasal Cannula 3.0 04/10/20 20:00 104 04/10/20 20:00 97.5 86 22 130/85 (100) 97 04/10/20 16:00 104 04/10/20 16:00 96.3 101 18 99/60 (73) 95 04/10/20 12:00 92 Height (Feet): 5 Height (Inches): 10.00 Weight (Pounds): 218 Current Medications Medications (Trade) Dose Ordered Sig/Hossein Route PRN Reason Start Time Stop Time Status Last Admin Dose Admin Acetaminophen (Tylenol) 650 mg Q4H PRN ORAL Mild Pain (Pain Scale 1-3) 04/02/20 21:15 05/02/20 21:14 04/06/20 08:09 Al Hydroxide/Mg Hydroxide (Mylanta) 30 ml Q6H PRN ORAL Abdominal cramps 04/02/20 21:30 05/02/20 21:29 04/10/20 08:53 Albuterol Sulfate (Proventil MDI) 2 puff Q4H PRN INH Shortness of Breath 04/02/20 21:30 07/01/20 21:29 04/05/20 13:56 Ascorbic Acid (Vitamin C) 500 mg DAILY ORAL 04/03/20 09:00 05/03/20 08:59 04/11/20 08:20 Atorvastatin Calcium (Lipitor) 20 mg BEDTIME ORAL 04/04/20 21:00 07/03/20 20:59 04/10/20 22:09 Dexamethasone Sodium Phosphate (Decadron 10mg/ ml Inj) 6 mg DAILY IV 04/03/20 09:00 04/12/20 09:01 04/11/20 08:20 Enoxaparin Sodium (Lovenox) 40 mg DAILY SUBQ 04/05/20 09:00 07/04/20 08:59 04/11/20 08:22 Famotidine (Pepcid) 20 mg DAILY ORAL 04/03/20 09:00 07/02/20 08:59 04/11/20 08:20 Lisinopril (PriniviL) 20 mg DAILY ORAL 04/05/20 09:00 05/05/20 08:59 04/11/20 08:21 Lorazepam (Ativan) 1 mg TIDPRN PRN ORAL For Anxiety 04/09/20 13:45 04/16/20 13:44 04/10/20 22:08 Magnesium Hydroxide (Mom) 30 ml HSPRN PRN ORAL Constipation 04/02/20 21:30 05/02/20 21:29 04/10/20 22:32 Ondansetron HCl (Zofran) 4 mg Q6H PRN IVP Nausea & Vomiting 04/02/20 21:15 05/02/20 21:14 Promethazine HCl/ Codeine (Phenergan with Codeine) 5 ml Q4H PRN ORAL For Cough 04/07/20 20:30 05/07/20 20:29 Aly Carreno MD Apr 11, 2020 11:37
[2020-04-11 12:00] VITALS: BP 110/71
[2020-04-11] MEDS ORDERED: NS 275ml ONE (13:40)
--- NOTE | 2020-04-11 14:24 | NUR ---
CASE MANAGEMENT:REVIEW SI;COVID PNEUMONIA 96.5 97 22 115/69 96% 2L NC IS;LOVENOX SQ QD DECADRON IV QD VITAMIN C PO QD PEPCID PO QD TELE STATUS DCP;FROM HOME
[2020-04-11 16:00] VITALS: BP 118/67
[2020-04-11] MEDS: LORazepam 1mg tab ORAL PRN ×2 (16:46→22:03)
--- NOTE | 2020-04-11 18:41 | General Progress Note ---
Subjective ROS Limited/Unobtainable: No Constitutional: Reports: malaise, weakness HEENT: Reports: no symptoms Cardiovascular: Reports: no symptoms Respiratory: Reports: no symptoms Gastrointestinal/Abdominal: Reports: no symptoms Genitourinary: Reports: no symptoms Allergies: Coded Allergies: No Known Allergies (Unverified , 04/02/20) Subjective no complaints.decreased sob. decreased o2 requirements. remains on decadron. Objective Last 24 Hour Vital Signs Date Time Temp Pulse Resp B/P (MAP) Pulse Ox O2 Delivery O2 Flow Rate FiO2 04/11/20 16:46 97 20 110/71 96 04/11/20 16:00 98.1 92 20 118/67 (84) 97 04/11/20 16:00 103 04/11/20 12:00 97 04/11/20 12:00 97.0 92 20 110/71 (84) 96 04/11/20 09:00 Nasal Cannula 2.0 04/11/20 08:21 110/70 04/11/20 08:00 96.5 81 20 115/69 (84) 97 04/11/20 08:00 83 04/11/20 04:00 76 04/11/20 04:00 89 20 04/11/20 00:00 96.8 89 22 110/70 (83) 96 04/11/20 00:00 79 04/10/20 22:38 86 18 130/85 97 04/10/20 22:08 104 18 110/62 95 04/10/20 21:00 Nasal Cannula 3.0 04/10/20 20:00 104 04/10/20 20:00 97.5 86 22 130/85 (100) 97 Intake and Output 04/10/20 04/11/20 19:00 07:00 Intake Total 3200 ml 500 ml Output Total 3200 ml Balance 0 ml 500 ml Intake Oral 3200 ml 500 ml Output Urine Total 3200 ml # Voids 8 3 # Bowel Movements 1 Height (Feet): 5 Height (Inches): 10.00 Weight (Pounds): 218 Objective General Appearance: WD/WN Neck: supple Cardiovascular: regular rhythm Respiratory/Chest: lungs clear Abdomen: normal bowel sounds, non tender, soft, no organomegaly Edema: no edema noted Leg (L), no edema noted Leg (R). no calf swelling or erythema. 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
[2020-04-11 20:00] VITALS: BP 119/87
--- NOTE | 2020-04-11 21:15 | NUR ---
NURSE NOTES: Received report from MUKESH Nieto. Patient awake on bed, alert and oriented x 4. On regular diet, instructed and amenable. On oxygen via nasal cannula @ 2Lpm sating 96-98%. school lunch monitor is in place, shows sinus rhythm with no chest pain reported at this time. Per RN, patient can ambulate with steady gait. IV site is on right wrist g-22 saline locked that is patent and intact. Safety measures are in place, bed in lowest and locked position, side rails up x 2, call light button and bedside table within reach, instructed to call for any assistance needed. Will continue plan of care.
--- NOTE | 2020-04-11 22:05 | NUR ---
NURSE NOTES: Upon assessment, patient is saturating 96-87% on nasal cannula, titrated down his oxygen to 1Lpm. Will continue to monitor.
[2020-04-12 00:03] VITALS: BP 110/71
[2020-04-12 04:00] VITALS: BP 113/78
--- NOTE | 2020-04-12 05:00 | NUR ---
NURSE NOTES: At this time, patient is saturating 95-96% will remove his oxygen and try the room air. Will closely monitor.
--- NOTE | 2020-04-12 06:05 | NUR ---
NURSE NOTES: Patient is requesting for a social services aide evaluation. Per patient, he wants to know and inquire if there's any available resources or support group if ever he'll be discharge because he can't go back to work for the meantime due to his condition.
--- NOTE | 2020-04-12 07:12 | NUR ---
NURSE HAND-OFF REPORT: Important Events on Shift: Patient was able to tolerate room air, at this time sating 95-96% with no complaints of nor chest pain. Patient is requesting for social service consult. Patient Status: Patient is awake on bed, in stable condition. Plan of care endorsed. Diet: Regular diet Pending Orders: none Pending Results/Labs:none Pending MD notification:none Latest Vital Signs: Temperature 97.9 , Pulse 86 , B/P 113 /78 , Respiratory Rate 21 , O2 SAT 96 , Nasal Cannula, O2 Flow Rate 2.0 . Vital Sign Comment: stable EKG Rhythm: Sinus Rhythm Rhythm change?: N MD Notified?: - MD Response: Latest Reina Fall Score: 20 Fall Risk: Low Risk Safety Measures: Call light Within Reach, Bed Alarm Zone 1, Side Rails Side Rails x2, Bed position Low and Locked. Fall Precautions: Yellow Socks Patient Fall Education Report given to MUKESH Jain.
--- NOTE | 2020-04-12 07:55 | NUR ---
NURSE NOTES: Received report from Carole/RN. Pt in bed, sleeping, in semi fowlers position. On room air, no distress or SOB noted. IV on right wrist 22G, SL, patent and clean. Bed in the lowest position and locked, call light within reach, encouraged to use when needed. Side rails up X3. Will continue plan of care.
[2020-04-12 08:24] VITALS: BP 115/75
[2020-04-12] MEDS: Ascorbic Acid 500mg tab ORAL SCH (08:25)
[2020-04-12] MEDS: Lisinopril 20mg tab ORAL SCH (08:26)
[2020-04-12] MEDS: dexAMETHasone 10mg/ml Inj IV SCH (08:26)
[2020-04-12] MEDS: Enoxaparin 40mg Inj SUBQ SCH (08:27)
[2020-04-12] MEDS ORDERED: XARELTO10 MG ORAL (08:50)
--- NOTE | 2020-04-12 10:18 | NUR ---
BRAKE OPERATOR HELPER NOTE SW met w/ pt to discuss his concern. 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 Pt is requesting information on SSDI. SW explained SSDI criteria briefly and asked pt to contact Social Security Office for further information. AFSHAN provided GR and food stamp resource while pt waiting for SSDI/in case his ROXI is not available in the future. Pt accepted the resource and verbalized understanding.
--- NOTE | 2020-04-12 10:35 | NUR ---
NURSE NOTES: Patient ambulated about 20 steps in his room, O2 saturation 93% on room air, no distress or SOB noted.
--- NOTE | 2020-04-12 10:55 | NUR ---
CASE MANAGEMENT:REVIEW 04/12/20 SI: COVID PNEUMONIA SATURATING 96% ON ROOM AIR SATURATING 93% WITH AMBULATION IS: DISCHARGE HOME TODAY PRESCRIPTIONS CALLED INTO [facility]
[2020-04-12 12:00] VITALS: BP 107/71
--- NOTE | 2020-04-12 12:02 | Infectious Diseases Prog Note ---
Assessment/Plan Assessment/Plan A 1. COVID19 pneumonia s/p regeneron antibody 2. hypertension 3. hypercholesterolemia 4. Hypoxemia improving P 1 Finished remdesivir course 2. Finished dexamethasone course 3. Can be discharged Subjective ROS Limited/Unobtainable: No Constitutional: Reports: no symptoms Respiratory: Reports: dry cough Gastrointestinal/Abdominal: Reports: no symptoms Genitourinary: Reports: no symptoms Allergies: Coded Allergies: No Known Allergies (Unverified , 04/02/20) Objective Last 24 Hour Vital Signs Date Time Temp Pulse Resp B/P (MAP) Pulse Ox O2 Delivery O2 Flow Rate FiO2 04/12/20 09:00 Room Air 04/12/20 08:26 115/75 04/12/20 08:24 98.4 100 18 115/75 (88) 94 04/12/20 08:00 90 04/12/20 04:00 97.9 86 21 113/78 (90) 96 04/12/20 04:00 66 04/12/20 00:03 97.7 95 20 110/71 (84) 97 04/11/20 23:40 75 04/11/20 22:33 90 20 115/79 98 04/11/20 22:03 97 19 119/87 95 04/11/20 21:00 Nasal Cannula 2.0 04/11/20 20:00 103 04/11/20 20:00 97.5 97 19 119/87 (98) 95 04/11/20 16:46 97 20 110/71 96 04/11/20 16:00 98.1 92 20 118/67 (84) 97 04/11/20 16:00 103 Height (Feet): 5 Height (Inches): 10.00 Weight (Pounds): 218 HEENT: mucous membranes moist Respiratory/Chest: no respiratory distress, other - on room air oxygen Cardiovascular: normal rate Abdomen: soft, non tender Extremities: no edema Neurologic/Psychiatric: alert, oriented x 3, responsive Current Medications Medications (Trade) Dose Ordered Sig/Hossein Route PRN Reason Start Time Stop Time Status Last Admin Dose Admin Acetaminophen (Tylenol) 650 mg Q4H PRN ORAL Mild Pain (Pain Scale 1-3) 04/02/20 21:15 05/02/20 21:14 04/06/20 08:09 Al Hydroxide/Mg Hydroxide (Mylanta) 30 ml Q6H PRN ORAL Abdominal cramps 04/02/20 21:30 05/02/20 21:29 04/11/20 21:23 Albuterol Sulfate (Proventil MDI) 2 puff Q4H PRN INH Shortness of Breath 04/02/20 21:30 07/01/20 21:29 04/05/20 13:56 Ascorbic Acid (Vitamin C) 500 mg DAILY ORAL 04/03/20 09:00 05/03/20 08:59 04/12/20 08:25 Atorvastatin Calcium (Lipitor) 20 mg BEDTIME ORAL 04/04/20 21:00 07/03/20 20:59 04/11/20 21:23 Enoxaparin Sodium (Lovenox) 40 mg DAILY SUBQ 04/05/20 09:00 07/04/20 08:59 04/12/20 08:27 Famotidine (Pepcid) 20 mg DAILY ORAL 04/03/20 09:00 07/02/20 08:59 04/12/20 08:26 Lisinopril (PriniviL) 20 mg DAILY ORAL 04/05/20 09:00 05/05/20 08:59 04/12/20 08:26 Lorazepam (Ativan) 1 mg TIDPRN PRN ORAL For Anxiety 04/09/20 13:45 04/16/20 13:44 04/11/20 22:03 Magnesium Hydroxide (Mom) 30 ml HSPRN PRN ORAL Constipation 04/02/20 21:30 05/02/20 21:29 04/10/20 22:32 Ondansetron HCl (Zofran) 4 mg Q6H PRN IVP Nausea & Vomiting 04/02/20 21:15 05/02/20 21:14 Promethazine HCl/ Codeine (Phenergan with Codeine) 5 ml Q4H PRN ORAL For Cough 04/07/20 20:30 05/07/20 20:29 Marlo Bejarano MD Apr 12, 2020 12:02
[2020-04-12 16:00] VITALS: BP 121/87
--- NOTE | 2020-04-12 18:15 | NUR ---
NURSE NOTES: Pt discharged home via private vehicle, accompanied by his brother Selwyn Ramos. Pt in stable condition, no distress or SOB noted. Discharge instructions given and patient verbalized understanding. pi/senior research associate, IV acces, and ID band removed. Belongings check list done and signed by the patient.
--- NOTE | 2020-04-13 15:46 | Discharge Summary ---
Discharge Summary Discharge Summary _ DATE OF ADMISSION: 04/02/2020 DATE OF DISCHARGE: 04/12/2020 DISCHARGED BY: Dr. Coley REASON FOR ADMISSION: 59 years old male with past medical history of hypertension, was tested positive for COVID-19 at [facility] on 03/28 with a symptoms beginning two days prior. His primary care provider placed him on azithromycin , Plaquenil ,and prednisone and told him to come to emergency room for Regeneron infusion. No prior history of allergic reaction. Patient was presented for monoclonal antibody infusion. He reported persistent dry cough and mild shortness of breath with low-grade fever. He denied chest pain, palpitations. No nausea, vomiting or diarrhea. During infusion patient was noted to have worsening shortness of breath. Pulse oximetry was 88% , which improved with oxygen via nasal cannula. Chest x-ray revealed bilateral infiltrates . Patient developed fever , unclear if secondary to COVID infection versus infusion. No evidence of severe anaphylaxis or angioedema. Laboratory work-up revealed no leukocytosis, stable hemoglobin and hematocrit. Chemistry was unremarkable aside from elevated lactic acid 2.5. Troponin was negative. Inflammatory markers were elevated Urinalysis revealed RBC , but no evidence of acute infection. Patient received fluid challenge and empiric antibiotics. Patient received Lovenox. Patient admitted for further management and monitoring of hypoxia. CONSULTANTS: ID specialist Dr. Carreno HOSPITAL COURSE: Patient admitted to isolation room to monitored floor. Patient completed course of remdesivir and dexamethasone. Supplemental oxygen provided and titrated to keep pulse oximetry above 92%. HFA provided. DVT prophylaxis provided. Antitussive provided as needed . Patient was followed-up with the imaging. Venous duplex bilateral lower extremity revealed no evidence of acute DVT. Home medication continued, including sta tin and antihypertensive. GI prophylaxis provided. Bowel regimen instituted. As patient clinically improved , he was able to be weaned off oxygen to room air. Patient clinically stabilized and was ready for discharge home. FINAL DIAGNOSES: COVID-19 pneumonia Hypoxia Hypertension Hypercholesterolemia status post Regeneron antibody infusion DISCHARGE MEDICATIONS: See Medication Reconciliation list. DISCHARGE INSTRUCTIONS: Patient was discharged home. Follow up with a primary care provider in 1 week. I have been assigned to dictate discharge summary for this account. I was not involved in the patient's management. Janet Barboza NP Apr 13, 2020 15:46
--- NOTE | 2020-04-15 10:36 | NUR ---
INSURANCE DC SUMMARY FAXED TO [facility] [place] T: [phone] F: [phone]
== END 2020-04-12 18:15 | disposition home or self-care (01) | DRG 177 ==
LOC: EMR 14:49 → 2E 19:45 → EDBEDREQSVC 20:11 → EDBEDREQ 04-03 05:51
PROC: XW033G6 Introduction of REGN-COV2 Monoclonal Antibody into Peripheral Vein, Percutaneous Approach, New Technology Group 6 (ICD-10-PCS; principal; 2020-04-02)
PROC: XW033E5 Introduction of Remdesivir Anti-infective into Peripheral Vein, Percutaneous Approach, New Technology Group 5 (ICD-10-PCS; 2020-04-03)
DX: U07.1 COVID-19 (principal); J12.82 Pneumonia due to coronavirus disease 2019; R09.02 Hypoxemia; J45.909 Unspecified asthma, uncomplicated; E66.9 Obesity, unspecified; Z68.31 Body mass index [BMI] 31.0-31.9, adult; I11.9 Hypertensive heart disease without heart failure; E78.00 Pure hypercholesterolemia, unspecified
CPT/HCPCS: 36415; 71045; 80053; 81003; 82248; 82550; 82553; 82728; 83605; 83615; 83690; 83735; 83880; 84484; 85025; 85379; 85610; 85730; 86140; 87040; 93005; 93970; 96361; 96365; 96367; 96372; 96375; 99291; J3490; J7030; Q0243